=== PATIENT | female | born 1955 | race African-American/Black ===

== ENCOUNTER 2020-09-23 19:10 | Emergency (ER) | payer OTHER, SELFPAY ==
--- OUTSIDE RECORDS SUMMARY | 2020-09-23 19:13 | XMS REPORT | Continuity of Care Document ---
:1955 Author Organization [facility] t Address 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) Active Problem 09/16/2020 [facility] Headache Problem Active 2020-09-16 Mem oria (finding) 00:34:27 l Headache Randy n (finding) Active Problem 09/16/2020 [facility] Hypertensi Problem Active 2020-09-16 M emoria ve 00:34:27 l disorder, [place] systemic Hypertensi arterial ve (disorder) disorder, systemic arterial (disorder) Active Problem 09/16/2020 [facility] Allergies, Adverse Reactions, Alerts Allergy Allergy Status Severity Reaction(s) Onset Inactive Treating Comm ents Source Name Type Date Date Clinician Sinus Sinus Active Sofi Betts Social History Social Habit Start Date Stop Date Quantity Comments Source Social History 2020-09-13 2020-09-13 Kyle shepard 14:47:10 14:47:10 Medications This patient has no known medications. Vital Signs Vital Name Observation Time Observation Value Comments Source Systolic (mm Hg) 2020-09-13 14:44:00 Aime Betts Diastolic (mm Hg) 2020-09-13 14:44:00 Mem jason Betts Heart Rate 2020-09-13 14:44:00 Kyle Betts Respitory Rate 2020-09-13 14:44:00 Dane Yancey Height 2020-09-13 14:44:00 160.02 cm Kyle Betts Weight 2020-09-13 14:44:00 Kyle Betts BMI Calculated 2020-09-13 14:44:00 Dane Yancey Procedures This patient has no known procedures. Encounters Start End Encounter Admission Attending Care Care Encounter Source Date/Time Date/Time Type Type Clinicians Facility Department ID 2020-09-13 2020-09-13 [id number] 09:30:00 23:59:59 Dharmesh 01 Tad 2018-10-11 2018-10-11 Emergency [facility] [id number] 05:34:42 06:40:00 Humaira Urbina [id number] [place] [id number] [place] [id number] Results This patient has no known results.
[2020-09-23] MEDS ORDERED: ACETAMINOPHEN 500 MG TAB ONE ×2 (21:39→23:53)
[2020-09-24] MEDS ORDERED: AZITHROMYCIN 250 MG TAB ONE (00:21)
[2020-09-24] MEDS ORDERED: dexAMETHasone 4 MG TAB ONE (00:22)
[2020-09-24] MEDS ORDERED: FAMOTIDINE 20 MG TAB ONE (00:22)
--- NOTE | 2020-09-24 13:14 | RAD REPORT ---
EXAM DESCRIPTION: CT - Head Brain Wo Cont - 09/24/2020 6:31 am CLINICAL HISTORY: The patient is 64 years old and is Female; HEADACHE TECHNIQUE: Axial computed tomography images of the head/brain without intravenous contrast. Sagitt al and coronal reformatted images were created and reviewed. This CT exam was performed using one o r more of the following dose reduction techniques: automated exposure control, adjustment of the mA and/or kV according to patient size, and/or use of iterative reconstruction technique. COMPARISON: No relevant prior studies available. FINDINGS: BRAIN: Unremarkable. The gallo-white matter differentiation is preserved . No hemorrhag e. No significant white matter disease. No edema. No extra-axial fluid collections. VENTRICLES: Unremarkable. No ventriculomegaly. BONES/JOINTS: No acute fracture. SOFT TISSUES: Unremarkable. SINUSES: Unremarkable as visualized. No acute sinusitis. MASTOID AIR CELLS: Unremarkable as visualized. No mastoid effusion. ORBITS: Unremarkable as visualized. IMPRESSION: No acute intracranial findings. Electronically signed by: Sally Mejia MD 09/23/2020 11:05 PM CDT Due to temporary technical issues with the PACS/Fluency reporting system, reports are being signed by the in house radiologists without review as a courtesy to insure prompt reporting. The interpreting radiologist is fully responsible for the content of the report.
--- NOTE | 2020-09-24 17:44 | ER ---
Nurse's Notes [facility] Name: Alycia Ibarra Age: 64 yrs Sex: Female : 1955 Arrival Date: 09/23/2020 Time: 19:15 Bed 13 Private MD: Diagnosis: Disease of upper respiratory tract, unspecified-urbina virus/ covid 19;Fever, unspecified Presentation: 09/23 21:03 Chief complaint: Patient states: Pt stated my head started hurting 09/09 headaches and kg ear aches. 09/[address] Sanderson neurology referred by eye dr for possible stroke. Pt scheduled for MRi/MRA 09/27. Pt headache has continually gotten worse and chills so she came to ER>. Coronavirus screen: Client denies travel out of the [place] in the last 14 days. At this time, unable to obtain information related to travel outside the [place] At this time, the client does not indicate any symptoms associated with coronavirus-19. Ebola Screen: Patient negative for fever greater than or equal to 101.5 degrees Fahrenheit, and additional compatible Ebola Virus Disease symptoms Patient denies exposure to infectious person. Patient denies travel to an Ebola-affected area in the 21 days before illness onset. Initial Sepsis Screen: Does the patient meet any 2 criteria? No. Patient's initial sepsis screen is negative. Does the patient have a suspected source of infection? No. Patient's initial sepsis screen is negative. Risk Assessment: Do you want to hurt yourself or someone else? Patient reports no desire to harm self or others. Onset of symptoms was September 09, 2020. 21:03 Method Of Arrival: Ambulatory kg 21:03 Acuity: CHADD 3 kg Triage Assessment: 21:08 Headache History: Denies prior headaches. General: Appears in no apparent distress. kg distressed, Behavior is calm, cooperative, appropriate for age, quiet. Pain: Complains of pain in face Pain radiates to Ear frieda Pain currently is 7 out of 10 on a pain scale. at worst was 9 out of 10 on a pain scale. level that patient reports is acceptable is 5 out of 10 on a pain scale. Quality of pain is described as dull, Pain began 09/09 Also complains of Chills. Neuro: Reports my right and right tingle on and off. Historical: - Allergies: 21:08 No Known Allergies; kg - Home Meds: 21:08 losartan 50 mg oral tab 1 tab [Active]; kg - PSHx: 21:08 hysterectomy; kg - Immunization history:: Adult Immunizations not up to date, Client reports having NOT received the Covid vaccine. - Social history:: Smoking status: Patient denies any tobacco usage or history of. Patient uses alcohol, occasionally. - Family history:: not pertinent. Screenin:12 Abuse screen: Denies threats or abuse. Denies injuries from another. Nutritional kg screening: No deficits noted. Tuberculosis screening: No symptoms or risk factors identified. Fall Risk None identified. Assessment: 23:39 General: Appears in no apparent distress. Behavior is calm, cooperative, appropriate ad5 for age. Pain: Complains of pain in headache, ear pain. Neuro: No deficits noted. Level of Consciousness is awake, alert, obeys commands, Oriented to person, place, time, situation, Appropriate for age Derrick Man are equal bilaterally Moves all extremities. Gait is steady, Speech is normal, Facial symmetry appears normal, Pupils are PERRLA, Intact. Neuro: Reports headache. Cardiovascular: Capillary refill < 3 seconds Patient's skin is warm and dry. Respiratory: Airway is patent Respiratory effort is even, unlabored, Respiratory pattern is regular, symmetrical. GI: No deficits noted. No signs and/or symptoms were reported involving the gastrointestinal system. : No deficits noted. No signs and/or symptoms were reported regarding the genitourinary system. Derm: Skin is dry, Skin is normal, Skin temperature is warm. Vital Signs: 21:03 BP 168 / 108; Pulse 89; Resp 20; Temp 101.7(O); Pulse Ox 99% on R/A; Weight 84.37 kg kg (M); Height 5 ft. 1 in. (154.94 cm); Pain 7/10; 23:41 BP 148 / 100; Pulse 86; Resp 18 S; Pulse Ox 98% on R/A; ad5 09/24 00:37 BP 126 / 78; Pulse 81; Resp 16; Temp 99.3(O); Pulse Ox 100% on R/A; ak2 09/23 21:03 Body Mass Index 35.14 (84.37 kg, 154.94 cm) kg Yumi Coma Score: 09/23 23:48 Eye Response: spontaneous(4). Verbal Response: oriented(5). Motor Response: obeys [facility] commands(6). Total: 15. ED Course: 19:15 Patient arrived in ED. es 21:08 Triage completed. kg 21:12 Patient has correct armband on for positive identification. kg 22:31 CT Head Brain wo Cont In Process Unspecified. EDKS 23:17 Destin Avila MD is Attending Physician. [facility] 23:49 Antwan Weber MD is Referral Physician. [facility] 09/24 00:37 No provider procedures requiring assistance completed. Patient did not have IV access ak2 during this emergency room visit. Administered Medications: 09/23 23:39 Drug: Tylenol 1000 mg Route: PO; ad5 09/24 00:11 Follow up: Response: No adverse reaction ad5 00:08 Drug: Decadron (dexamethasone) 6 mg Route: PO; ak2 00:08 Drug: Pepcid (famotidine) 40 mg Route: PO; ak2 00:09 Drug: Zithromax (azithromycin) 500 mg Route: PO; ak2 Outcome: 09/23 23:50 Discharge ordered [address] . [facility] 09/24 00:37 Discharged to home ambulatory. ak2 Condition: good Discharge instructions given to patient. 00:38 Patient left the ED. ak2 Signatures: Dispatcher [employer] EDKS Destin Avila MD MD cha Salyer, Krystal Puckett, RN RN kg Wu [place] ak2 Corrections: (The following items were deleted from the chart) 09/23 21:10 21:08 PMHx: Hypertensive disorder; kg kg 09/24 00:38 00:37 BP 126 / 78; Pulse 81bpm; Resp 16bpm; Pulse Ox 100% RA; ak2 ak2
--- NOTE | 2020-09-24 17:44 | EDPHYS ---
Physician Documentation [facility] Name: Alycia Ibarra Age: 64 yrs Sex: Female : 1955 Arrival Date: 09/23/2020 Time: 19:15 Bed 13 Private MD: ED Physician Destin Avila HPI: 09/23 23:42 This 64 yrs old Black Female presents to ER via Ambulatory with complaints of Headache, charley x 9 days, hand and fet tngling. 23:42 The patient complains of pain to the top of head, forehead, left frontal area, left charley side of the back of head, left occipital area, left base of the skull, right frontal area, right side of the back of head, right occipital area and right base of the skull. The patient describes the headache as constant. Onset: The symptoms/episode began/occurred 2 day(s) ago. 23:43 The patient or guardian reports cough. Onset: The symptoms/episode began/occurred 2 charley day(s) ago. Modifying factors: The symptoms are alleviated by nothing. the symptoms are aggravated by nothing. Associated signs and symptoms: The patient has no apparent associated signs or symptoms. Severity of symptoms: At its worst the pain was mild, in the emergency department the pain is unchanged. Headache History: Denies prior headaches. Associated signs and symptoms: Pertinent positives: fever, sore throat. Severity of symptoms: At their worst the symptoms were mild in the emergency department the symptoms are unchanged. Historical: - Allergies: 21:08 No Known Allergies; kg - Home Meds: 21:08 losartan 50 mg oral tab 1 tab [Active]; kg - PSHx: 21:08 hysterectomy; kg - Immunization history:: Adult Immunizations not up to date, Client reports having NOT received the Covid vaccine. - Social history:: Smoking status: Patient denies any tobacco usage or history of. Patient uses alcohol, occasionally. - Family history:: not pertinent. ROS: 23:43 Eyes: Negative for injury, pain, redness, and discharge, Neck: Negative for injury, charley pain, and swelling, Cardiovascular: Negative for chest pain, palpitations, and edema, Abdomen/GI: Negative for abdominal pain, nausea, vomiting, diarrhea, and constipation, Back: Negative for injury and pain, : Negative for injury, bleeding, discharge, and swelling, MS/Extremity: Negative for injury and deformity, Skin: Negative for injury, rash, and discoloration, Psych: Negative for depression, anxiety, suicide ideation, homicidal ideation, and hallucinations, Allergy/Immunology: Negative for hives, rash, and allergies, Endocrine: Negative for neck swelling, polydipsia, polyuria, polyphagia, and marked weight changes, Hematologic/Lymphatic: Negative for swollen nodes, abnormal bleeding, and unusual bruising. 23:43 Constitutional: Positive for fever, malaise. 23:43 Respiratory: Positive for cough. 23:43 Neuro: Positive for headache. Exam: 23:43 Head/Face: Normocephalic, atraumatic. Eyes: Pupils equal round and reactive to light, charley extra-ocular motions intact. Lids and lashes normal. Conjunctiva and sclera are non-icteric and not injected. Cornea within normal limits. Periorbital areas with no swelling, redness, or edema. ENT: Nares patent. No nasal discharge, no septal abnormalities noted. Tympanic membranes are normal and external auditory canals are clear. Oropharynx with no redness, swelling, or masses, exudates, or evidence of obstruction, uvula midline. Mucous membranes moist. Neck: Trachea midline, no thyromegaly or masses palpated, and no cervical lymphadenopathy. Supple, full range of motion without nuchal rigidity, or vertebral point tenderness. No Meningismus. Chest/axilla: Normal chest wall appearance and motion. Nontender with no deformity. No lesions are appreciated. Cardiovascular: Regular rate and rhythm with a normal S1 and S2. No gallops, murmurs, or rubs. Normal PMI, no JVD. No pulse deficits. Respiratory: Lungs have equal breath sounds bilaterally, clear to auscultation and percussion. No rales, rhonchi or wheezes noted. No increased work of breathing, no retractions or nasal flaring. Abdomen/GI: Soft, non-tender, with normal bowel sounds. No distension or tympany. No guarding or rebound. No evidence of tenderness throughout. Back: No spinal tenderness. No costovertebral tenderness. Full range of motion. Female : Normal external genitalia. Skin: Warm, dry with normal turgor. Normal color with no rashes, no lesions, and no evidence of cellulitis. MS/ Extremity: Pulses equal, no cyanosis. Neurovascular intact. Full, normal range of motion. Neuro: Awake and alert, GCS 15, oriented to person, place, time, and situation. Cranial nerves II-XII grossly intact. Motor strength 5/5 in all extremities. Sensory grossly intact. Cerebellar exam normal. Normal gait. Psych: Awake, alert, with orientation to person, place and time. Behavior, mood, and affect are within normal limits. 23:43 Constitutional: The patient appears febrile. Vital Signs: 21:03 BP 168 / 108; Pulse 89; Resp 20; Temp 101.7(O); Pulse Ox 99% on R/A; Weight 84.37 kg kg (M); Height 5 ft. 1 in. (154.94 cm); Pain 7/10; 23:41 BP 148 / 100; Pulse 86; Resp 18 S; Pulse Ox 98% on R/A; ad5 09/24 00:37 BP 126 / 78; Pulse 81; Resp 16; Temp 99.3(O); Pulse Ox 100% on R/A; ak2 09/23 21:03 Body Mass Index 35.14 (84.37 kg, 154.94 cm) kg Yumi Coma Score: 09/23 23:48 Eye Response: spontaneous(4). Verbal Response: oriented(5). Motor Response: obeys [facility] commands(6). Total: 15. MDM: 23:17 Patient medically screened. [facility] 23:48 Antibiotic administration: The patient is discharged and will get outpatient [facility] antibiotics, Zithromax. Differential diagnosis: bronchitis, flu, URI, migraine, sinusitis. Data reviewed: vital signs, nurses notes, lab test result(s), Flu: negative. Data interpreted: lunchroom monitor: rate is 86 beats/min, rhythm is regular, Pulse oximetry: on room air is 98 %. Counseling: I had a detailed discussion with the patient and/or guardian regarding: the historical points, exam findings, and any diagnostic results supporting the discharge/admit diagnosis, lab results, the need for outpatient follow up, for definitive care, a family practitioner, a second chef. 09/23 21:13 Order name: COVID-19 : Document "Date of Symptom Onset" if Symptomatic. kg 09/23 21:13 Order name: Flu kg 09/23 21:14 Order name: Influenza Screen (A ; Complete Time: 23:46 EDMS 09/23 22:13 Order name: CT Head Brain wo Cont kg 09/23 23:29 Order name: SARS-COV-2 RT PCR; Complete Time: 23:46 EDMS Administered Medications: 23:39 Drug: Tylenol 1000 mg Route: PO; ad5 09/24 00:11 Follow up: Response: No adverse reaction ad5 00:08 Drug: Decadron (dexamethasone) 6 mg Route: PO; ak2 00:08 Drug: Pepcid (famotidine) 40 mg Route: PO; ak2 00:09 Drug: Zithromax (azithromycin) 500 mg Route: PO; ak2 Disposition Summary: 09/23/20 23:50 Discharge Ordered Location: Home [facility] Problem: new [facility] Symptoms: have improved charley Condition: Stable charley Diagnosis - Disease of upper respiratory tract, unspecified - [place] virus/ covid 19 charley - Fever, unspecified charley Followup: charley - With: Private Physician - When: 2 - 3 days - Reason: Recheck today's complaints, Continuance of care, Re-evaluation by your physician Followup: charley - With: Antwan Weber MD - When: 2 - 3 days - Reason: Recheck today's complaints, Re-evaluation by your physician Discharge Instructions: - Discharge Summary Sheet [facility] - Fever, Adult charley - Upper Respiratory Infection, Adult charley - Viral Respiratory Infection charley - Viral Respiratory Infection, [id number] charley - Aspirin and Your Heart charley - Fever, Adult, [id number] [facility] - COVID-19 charley - COVID-19: What Your Test Results Mean - [facility] - COVID-19 Frequently Asked Questions [facility] - COVID-19: Quarantine vs. Isolation - [facility] charley Forms: - Medication Reconciliation Form charley - Thank You Letter [facility] - Antibiotic Education [facility] - Prescription Opioid Use [facility] Prescriptions: - albuterol sulfate 90 mcg/actuation Inhalation HFA aerosol inhaler - inhale 2 puff by INHALATION route every 4-6 hours; 1 puff; Refills: 0, Product charley Selection Permitted - dexamethasone 2 mg Oral tablet - take 1 tablet by ORAL route 3 times per day; 15 tablet; Refills: 0, Product [facility] Selection Permitted - ivermectin 3 mg Oral tablet - take 4 tablet by ORAL route once daily; 20 tablet; Refills: 0, Product [facility] Selection Permitted - Pepcid 20 mg Oral Tablet - take 1 tablet by ORAL route every 12 hours for 10 days; 20 tablet; Refills: 0, charley Product Selection Permitted - Zithromax 500 mg Oral Tablet - take 1 tablet by ORAL route once daily for 4 days; 4 tablet; Refills: 0, charley Product Selection Permitted Signatures: Dispatcher [employer] Destin Umana MD MD cha Graham, Kristen, RN RN kg Millan, [place] Corrections: (The following items were deleted from the chart) 09/23 21:10 21:08 PMHx: Hypertensive disorder; kg kg 22:05 21:14 CORONAVIRUS ordered. EDDC EDDC
[2020-09-25 16:15] VITALS: BP 126/78; TEMP 99.3; O2SAT 100
== END 2020-09-24 00:38 | disposition home or self-care (01) ==
LOC: ER 19:10
DX: U07.1 COVID-19 (principal); R51.9 Headache, unspecified
CPT/HCPCS: 87804 ×2; 70450; U0003

== ENCOUNTER 2020-09-30 19:03 | Inpatient (IN) | payer OTHER, SELFPAY ==
--- OUTSIDE RECORDS SUMMARY | 2020-09-30 19:06 | XMS REPORT | Continuity of Care Document ---
:1955 Author Organization [facility] t Address [address] [place] [address] Care Team Providers Name Role Phone Tad [...] 2020-09-16 M emoria ve 00:34:27 l disorder, [place] systemic Hypertensi arterial ve (disorder) disorder, systemic [...] Department ID 2020-09-13 2020-09-13 [id number] 09:30:00 23:59:59 Dharmesh 01 Tad 2018-10-11 2018-10-11 Emergency [facility] [id number] 05:34:42 06:40:00 Humaira Urbina [id number] [place] [id number] [place] [id number] Results This patient has no known results.
[2020-09-30] MEDS ORDERED: ASPIRIN 81 MG CHEWABLE TABLET ONE (23:09)
[2020-09-30] MEDS ORDERED: ALBUTEROL INHALER 60 PUFF/8 GM IH ONE (23:09)
[2020-09-30] MEDS ORDERED: ACETAMINOPHEN 325 MG TABLET ONE (23:09)
[2020-09-30] MEDS ORDERED: FAMOTIDINE 20 MG/2 ML VIAL IV ONE (23:09)
[2020-09-30] MEDS ORDERED: dexAMETHasone 10 MG/ML VIAL ONE (23:09)
--- NOTE | 2020-09-30 23:25 | ER ---
Nurse's Notes [facility] Name: Alycia Ibarra Age: 64 yrs Sex: Female : 1955 Arrival Date: 09/30/2020 Time: 19:04 Bed 6 Private MD: Diagnosis: Pneumonia due to SARS-associated coronavirus-Covid 19 ;Hypoxemia;Cardiomegaly Presentation: 09/30 20:29 Chief complaint: Patient states: Pt was seen in ED on 09/23/20 and was tested for vg1 Covid, results Positive. Stated medications were working, but today felt shortness of breath/difficulty breathing. Denies NVD. Stated has a slight headache. Coronavirus screen: Client denies travel out of the [place] in the last 14 days. Client reports previous positive COVID test result. Date of collection: September 23, 2020. Ebola Screen: Patient negative for fever greater than or equal to 101.5 degrees Fahrenheit, and additional compatible Ebola Virus Disease symptoms. Initial Sepsis Screen: Does the patient meet any 2 criteria? No. Patient's initial sepsis screen is negative. Does the patient have a suspected source of infection? No. Patient's initial sepsis screen is negative. Risk Assessment: Do you want to hurt yourself or someone else?. Onset of symptoms was September 30, 2020. 20:29 Method Of Arrival: Ambulatory vg1 20:29 Acuity: CHADD 3 vg1 Triage Assessment: 20:34 General: Appears in no apparent distress. comfortable, Behavior is calm, cooperative. vg1 Pain: Complains of pain in head Pain currently is 7 out of 10 on a pain scale. Pain began today. Respiratory: Reports shortness of breath on exertion cough that is productive, Airway is patent Respiratory effort is even, unlabored, Respiratory pattern is tachypnea Onset: The symptoms/episode began/occurred this morning, the patient has moderate shortness of breath. 20:39 Respiratory: Breath sounds are diminished in left posterior lower lobe and right vg1 posterior lower lobe. Historical: - Allergies: 20:34 No Known Allergies; vg1 - Home Meds: 20:34 losartan 50 mg Oral tab 1 tab [Active]; vg1 - PMHx: 20:34 Hypertensive disorder; vg1 - PSHx: 20:34 hysterectomy; vg1 - Immunization history:: Adult Immunizations up to date, . - Social history:: Smoking status: Patient denies any tobacco usage or history of. Screenin:47 Abuse screen: Denies threats or abuse. Nutritional screening: No deficits noted. ea Tuberculosis screening: No symptoms or risk factors identified. Fall Risk IV access (20 points). Assessment: 23:00 General: Appears uncomfortable, Behavior is appropriate for age. Pain: Denies pain. ea Neuro: Level of Consciousness is awake, alert, obeys commands, Oriented to person, place, time. Cardiovascular: Patient's skin is warm and dry. Respiratory: Airway is patent Respiratory effort is labored, Respiratory pattern is tachypnea. Derm: Skin is dry, Skin is normal, Skin temperature is warm. 10/01 19:59 Reassessment: Patient and/or family updated on plan of care and expected duration. Pain ea level reassessed. Patient is alert, oriented x 3, equal unlabored respirations, skin warm/dry/pink. Pt admitted to fourth floor, report called to receiving nurse on fourth. Pt left ED via wheelchair per mortuary technician, tolerating well. Vital Signs: 09/30 20:29 BP 107 / 77; Pulse 95; Resp 22; Temp 99.4(O); Pulse Ox 90% on R/A; Weight 83.46 kg; vg1 Height 5 ft. 1 in. (154.94 cm); Pain 7/10; 20:39 Pulse Ox 93% on 3 lpm NC; vg1 23:48 BP 126 / 67; Pulse 82; Resp 23; Pulse Ox 87% on R/A; ea 10/01 20:00 BP 102 / 57; Pulse 70; Resp 20; Pulse Ox 95% on 3 lpm NC; ea 09/30 20:29 Body Mass Index 34.77 (83.46 kg, 154.94 cm) vg1 09/30 23:48 pt placed on O2 at 3L per nasal cannula ea ED Course: 19:04 Patient arrived in ED. am2 20:34 Triage completed. vg1 20:34 Arm band placed on Patient placed in waiting room, Patient notified of wait time. vg1 22:12 Destin Avila MD is Attending Physician. charley 22:43 Nia Addison RN is Primary Nurse. ea 23:23 Gerald Fernando MD is Hospitalizing Provider. charley 23:26 XRAY Chest (1 view) In Process Unspecified. EDIL 23:47 Patient has correct armband on for positive identification. Bed in low position. Call ea light in reach. Side rails up X2. potato chip maker on. Pulse ox on. NIBP on. 23:47 No provider procedures requiring assistance completed. Patient admitted, IV remains in ea place. 10/01 00:15 Inserted saline lock: 18 gauge in left antecubital area, using aseptic technique. [email or web address] Administered Medications: 09/30 23:11 Drug: Tylenol 650 mg Route: PO; ea 23:11 Drug: Decadron - Dexamethasone 10 mg Route: IVP; Site: right antecubital; ea 23:11 Drug: Albuterol HFA Inhaler 4 puffs Route: Inhalation; ea 23:11 Drug: Pepcid (famotidine) 20 mg Route: IVP; Site: right antecubital; ea 23:11 Drug: Aspirin 162 mg Route: PO; ea 23:47 Drug: Rocephin (cefTRIAXone) 1 grams Route: IV; Rate: per protocol; Site: right ea antecubital; 10/01 00:29 Drug: Zithromax (azithromycin) 500 mg Route: IVPB; Infused Over: 1 hrs; Site: left ea antecubital; Outcome: 09/30 23:24 Decision to Hospitalize by Provider. [facility] 23:47 Admitted to ER Hold. Please see [facility] for further documentation. 23:47 Condition: stable 23:47 Instructed on the need for admit, Demonstrated understanding of instructions. 10/01 20:01 Patient left the ED. ea Signatures: Dispatcher [employer] EDIL Destin Avila MD MD cha Bryson, James, RN RN jb4 Vanessa Omalley Elena, RN RN Gi Newton RN RN vg1 Esteban Madden, RN RN da3
--- NOTE | 2020-09-30 23:25 | EDPHYS ---
Physician Documentation [facility] Name: Alycia Ibarra Age: 64 yrs Sex: Female : 1955 Arrival Date: 09/30/2020 Time: 19:04 Bed 6 Private MD: ED Physician Destin Avila HPI: 09/30 22:37 This 64 yrs old Black Female presents to ER via Ambulatory with complaints of Breathing charley Difficulty, Covid+. 22:37 The patient has shortness of breath at rest, with light activity. Onset: The charley symptoms/episode began/occurred 3 day(s) ago. Historical: - Allergies: 20:34 No Known Allergies; vg1 - Home Meds: 20:34 losartan 50 mg Oral tab 1 tab [Active]; vg1 - PMHx: 20:34 Hypertensive disorder; vg1 - PSHx: 20:34 hysterectomy; vg1 - Immunization history:: Adult Immunizations up to date, . - Social history:: Smoking status: Patient denies any tobacco usage or history of. ROS: 22:39 Constitutional: Negative for fever, chills, and weight loss, Eyes: Negative for injury, charley pain, redness, and discharge, ENT: Negative for injury, pain, and discharge, Neck: Negative for injury, pain, and swelling, Cardiovascular: Negative for chest pain, palpitations, and edema, Abdomen/GI: Negative for abdominal pain, nausea, vomiting, diarrhea, and constipation, Back: Negative for injury and pain, : Negative for injury, bleeding, discharge, and swelling, MS/Extremity: Negative for injury and deformity, Skin: Negative for injury, rash, and discoloration, Neuro: Negative for headache, weakness, numbness, tingling, and seizure, Psych: Negative for depression, anxiety, suicide ideation, homicidal ideation, and hallucinations, Allergy/Immunology: Negative for hives, rash, and allergies, Endocrine: Negative for neck swelling, polydipsia, polyuria, polyphagia, and marked weight changes, Hematologic/Lymphatic: Negative for swollen nodes, abnormal bleeding, and unusual bruising. 22:39 Cardiovascular: Positive for chest pain, of the chest. 22:39 Respiratory: Positive for cough, with no reported sputum, shortness of breath. Exam: 22:39 Constitutional: This is a well developed, well nourished patient who is awake, alert, charley and in no acute distress. Head/Face: Normocephalic, atraumatic. Eyes: Pupils equal round and reactive to light, extra-ocular motions intact. Lids and lashes normal. Conjunctiva and sclera are non-icteric and not injected. Cornea within normal limits. Periorbital areas with no swelling, redness, or edema. ENT: Nares patent. No nasal discharge, no septal abnormalities noted. Tympanic membranes are normal and external auditory canals are clear. Oropharynx with no redness, swelling, or masses, exudates, or evidence of obstruction, uvula midline. Mucous membranes moist. Neck: Trachea midline, no thyromegaly or masses palpated, and no cervical lymphadenopathy. Supple, full range of motion without nuchal rigidity, or vertebral point tenderness. No Meningismus. Chest/axilla: Normal chest wall appearance and motion. Nontender with no deformity. No lesions are appreciated. Cardiovascular: Regular rate and rhythm with a normal S1 and S2. No gallops, murmurs, or rubs. Normal PMI, no JVD. No pulse deficits. Abdomen/GI: Soft, non-tender, with normal bowel sounds. No distension or tympany. No guarding or rebound. No evidence of tenderness throughout. Back: No spinal tenderness. No costovertebral tenderness. Full range of motion. Female : Normal external genitalia. Skin: Warm, dry with normal turgor. Normal color with no rashes, no lesions, and no evidence of cellulitis. MS/ Extremity: Pulses equal, no cyanosis. Neurovascular intact. Full, normal range of motion. Neuro: Awake and alert, GCS 15, oriented to person, place, time, and situation. Cranial nerves II-XII grossly intact. Motor strength 5/5 in all extremities. Sensory grossly intact. Cerebellar exam normal. Normal gait. Psych: Awake, alert, with orientation to person, place and time. Behavior, mood, and affect are within normal limits. 22:39 Respiratory: the patient does not display signs of respiratory distress, Respirations: no acute changes, Breath sounds: bronchial sounds, that are mild, are scattered, rhonchi, that are mild, are scattered, Respiratory rate: 22 23:48 ECG was reviewed by the Attending Physician. [facility] Vital Signs: 20:29 BP 107 / 77; Pulse 95; Resp 22; Temp 99.4(O); Pulse Ox 90% on R/A; Weight 83.46 kg; vg1 Height 5 ft. 1 in. (154.94 cm); Pain 7/10; 20:39 Pulse Ox 93% on 3 lpm NC; vg1 23:48 BP 126 / 67; Pulse 82; Resp 23; Pulse Ox 87% on R/A; ea 10/01 20:00 BP 102 / 57; Pulse 70; Resp 20; Pulse Ox 95% on 3 lpm NC; ea 09/30 20:29 Body Mass Index 34.77 (83.46 kg, 154.94 cm) vg1 09/30 23:48 pt placed on O2 at 3L per nasal cannula ea MDM: 22:12 Patient medically screened. charley 22:41 Differential diagnosis: Anemia Anxiety Reaction asthma, Bronchitis CHF exacerbation, charley Chronic Obstructive Pulmonary Disease pneumonia, pulmonary edema, Pulmonary Embolism reactive airway disease. Antibiotic administration: Rocephin and Zithromax given. The patient's Wells Deep Vein Thrombosis Score was calculated as follows: Total Score: 0-2 Pts- Low Risk. The patient's pulmonary embolism risk score was calculated as follows: Total Score: 0-2 points. This patient was found to be at low risk for a pulmonary embolism by using the Well's assessment criteria. Immunization status: Influenza vaccine: Data reviewed: vital signs, nurses notes, lab test result(s), EKG, radiologic studies, CT scan, plain films. Data interpreted: environmental monitoring technician: rate is 95 beats/min, rhythm is regular, Pulse oximetry: on room air. Test interpretation: by ED physician or midlevel provider: ECG, plain radiologic studies. Counseling: I had a detailed discussion with the patient and/or guardian regarding: the historical points, exam findings, and any diagnostic results supporting the discharge/admit diagnosis, lab results, radiology results. 09/30 22:31 Order name: Basic Metabolic Panel la09/30 22:31 Order name: CBC with Diff 09/30 22:31 Order name: LFT's 09/30 22:31 Order name: Magnesium la09/30 22:31 Order name: NT PRO-BNP la09/30 22:31 Order name: PT-INR la09/30 22:31 Order name: Troponin (emerg Dept Use Only) la09/30 22:31 Order name: Blood Culture Adult (2) la1 09/30 22:31 Order name: CRP la1 09/30 22:31 Order name: Ferritin la1 09/30 22:32 Order name: Basic Metabolic Panel EDMS 09/30 22:32 Order name: CBC with Automated Diff EDMS 09/30 22:32 Order name: Liver (Hepatic) Function EDMS 09/30 22:32 Order name: Magnesium EDMS 09/30 22:31 Order name: XRAY Chest (1 view) la1 09/30 22:32 Order name: NT PRO-BNP EDMS 09/30 22:32 Order name: Protime (+INR) EDMS 09/30 22:39 Order name: CT Chest For PE Angio charley 09/30 23:16 Order name: Lactate tt3 10/01 04:31 Order name: Lactate Sepsis 2 HR Follow-up EDMS 10/01 06:07 Order name: CBC with Automated Diff EDMS 10/01 06:12 Order name: D-Dimer EDMS 10/01 06:23 Order name: Comprehensive Metabolic Panel EDMS 10/01 06:23 Order name: C-Reactive Protein EDMS 10/01 06:23 Order name: T4 Free EDMS 10/01 06:23 Order name: Magnesium EDMS 10/01 06:23 Order name: Thyroid Stimulating Hormone EDMS 10/01 06:23 Order name: Ferritin EDMS 10/01 07:56 Order name: CBC Smear Scan EDMS 10/01 11:19 Order name: CT EDMS 09/30 22:31 Order name: EKG; Complete Time: 22:32 la1 09/30 22:31 Order name: Cardiac monitoring; Complete Time: 23:11 la1 09/30 22:31 Order name: EKG - Nurse/Tech la1 09/30 22:31 Order name: IV Saline Lock; Complete Time: 23:11 la1 09/30 22:31 Order name: Labs collected and sent; Complete Time: 23:11 la1 09/30 22:31 Order name: O2 Per Protocol; Complete Time: 23:11 la1 09/30 22:31 Order name: O2 Sat Monitoring; Complete Time: 23:11 la EC:48 Rate is 83 beats/min. Rhythm is regular. QRS [place] is Normal. RI interval is normal. QRS charley interval is normal. QT interval is normal. No Q waves. T waves are Normal. No ST changes noted. Clinical impression: NSR w/ Non-specific ST/T Changes, LVH, and No evidence of ischemia. Interpreted by me. Reviewed by me. Administered Medications: 23:11 Drug: Tylenol 650 mg Route: PO; ea 23:11 Drug: Decadron - Dexamethasone 10 mg Route: IVP; Site: right antecubital; ea 23:11 Drug: Albuterol HFA Inhaler 4 puffs Route: Inhalation; ea 23:11 Drug: Pepcid (famotidine) 20 mg Route: IVP; Site: right antecubital; ea 23:11 Drug: Aspirin 162 mg Route: PO; ea 23:47 Drug: Rocephin (cefTRIAXone) 1 grams Route: IV; Rate: per protocol; Site: right ea antecubital; 10/01 00:29 Drug: Zithromax (azithromycin) 500 mg Route: IVPB; Infused Over: 1 hrs; Site: left ea antecubital; Disposition Summary: 09/30/20 23:24 Hospitalization Ordered Hospitalization Status: Inpatient Admission charley Provider: Gerald Fernando cha Condition: Fair charley Problem: new charley Symptoms: have improved charley Bed/Room Type: Standard charley Location: Telemetry/MedSurg (Inpatient)(10/01/20 18:26) bd Room Assignment: 418(10/01/20 18:26) bd Diagnosis - Pneumonia due to SARS-associated coronavirus - Covid 19 charley - Hypoxemia charley - Cardiomegaly charley Forms: - Medication Reconciliation Form charley - SBAR form charley Signatures: Dispatcher [employer] EDChristine Valenzuela Martha RN Destin Napier MD MD cha Attema, Lee, LEASE OUT MAN-C LEASE OUT MAN-Cla1 Nia Addison RN RN ea Garcia, Victoria RN RN vg1 Esteban Madden, RN RN da3 Corrections: (The following items were deleted from the chart) 09/30 23:25 23:24 Telemetry/MedSurg (Inpatient) [facility] 23:25 23:24 charley 10/01 18:26 09/30 23:25 [facility] ER HOLD [facility] 10/01 18:26 09/30 23:25 ERHOLD- [facility]
[2020-09-30 23:44] LABS: ALT/SGPT 23 U/L (12-78); AST/SGOT 21 U/L (15-37); Albumin 3.4 g/dL (3.4-5.0); Alkaline Phosphatase 70 U/L (45-117); BUN Blood Urea Nitrogen 22 mg/dL (7-18); Bicarbonate 29 mmol/L (21-32); Bilirubin Direct 0.1 mg/dL (0-0.2); Bilirubin Total 0.3 mg/dL (0.2-1.0); Ferritin 289.5 ng/mL (8-388); Glucose Level 98 mg/dL (74-106); Magnesium 2.9 mg/dL (1.8-2.4); NT PRO-BNP 41 pg/mL (<125); Potassium 3.7 mmol/L (3.5-5.1); Protein, Total 7.6 g/dL (6.4-8.2); Sodium Level 142 mmol/L (136-145); Troponin (Emerg Dept Use Only) < 0.02 ng/mL (0.0-0.045)
--- NOTE | 2020-09-30 23:51 | P.HP ---
Certification for Inpatient Patient admitted to: Inpatient With expected LOS: >2 Midnights Patient will require the following post-hospital care: None Practitioner: I am a practitioner with admitting privileges, knowledge of patient current condition, hospital course, and medical plan of care. Services: Services provided to patient in accordance with Admission requirements found in Title 42 Section 412.3 of the Code of Federal Regulations Patient History Date of Service: 09/30/20 Reason for admission: COVID-19 pneumonia History of Present Illness: 64-year-old -[place] female with history of hypertension presents emergency department for shortness of breath. Patient tested positive for Covid on 09/23/2020 with worsening shortness of breath since then. Upon arrival to the emergency department patient was saturating the high 80s on room air, patient was placed on nasal cannula which he is tolerating well at this time labs significant for C-reactive protein 43.4 magnesium 2.9 lactic acid 2.1 chest x- ray with bilateral Covid pneumonia, CT PE protocol pending. - Past Medical/Surgical History -: Hypertension -: Hysterectomy Psychosocial/ Personal History: Lives at home, cares for her grandchild - Family History Father -: Cancer - Social History Smoking Status: Never smoker Alcohol use: No CD- Drugs: No Caffeine use: Yes Place of Residence: Home Review of Systems 10-point ROS is otherwise unremarkable Respiratory: Cough, Dry, Shortness of Breath, SOB with Excertion Physical Examination - Physical Exam General: Alert, In no apparent distress, Oriented x3 HEENT: Atraumatic, PERRLA, Mucous membr. moist/pink, EOMI, Sclerae nonicteric Neck: Supple, 2+ carotid pulse no bruit, No LAD, Without JVD or thyroid abnormality Respiratory: Diminished, Other (Tachypnea) Cardiovascular: Regular rate/rhythm, Normal S1 S2 Gastrointestinal: Normal bowel sounds, No tenderness Musculoskeletal: No tenderness Integumentary: No rashes Neurological: Normal gait, Normal speech, Normal strength at 5/5 x4 extr, Normal tone, Normal affect Lymphatics: No axilla or inguinal lymphadenopathy - Studies Laboratory Data (last 24 hrs) 09/30/20 22:55: Sodium 142, Potassium 3.7, BUN 22 H, Creatinine 0.93, Glucose 98, Magnesium 2.9 H, Total Bilirubin 0.3, AST 21, ALT 23, Alkaline Phosphatase 70 Assessment and Plan - Plan Assessment: Acute hypoxic respiratory failure secondary to COVID-19 pneumonia Hypertension Plan: Acute hypoxic respiratory failure secondary to COVID-19 pneumonia: Continue with IV steroids, oral supplements, supplemental oxygen as needed, daily room air s aturations, room air saturations for home O2. Pulmonology consulted. If patient maintains stability over the course next 24 to 48 hours could possibly be discharged on home oxygen. Hypertension: Continue medications, adjust as necessary DVT PPX: Lovenox Code status: Full Discharge Plan: Home Plan to discharge in: 48 Hours - Advance Directives Does patient have a Living Will: No Does patient have a Durable POA for Healthcare: No - Code Status/Comfort Care Code Status Assessed: Yes (Full code) Critical Care: No Time Spent Managing Pts Care (In Minutes): 55
[2020-09-30] MEDS ORDERED: NA CHLORIDE 0.9% 100 ML ONE (23:58)
[2020-09-30] MEDS ORDERED: CEFTRIAXONE/SWI 1gm 1 GM/10 ML SYR ONE (23:58)
[2020-09-30] MEDS ORDERED: NA CHLORIDE 0.9% 250 ML ONE (23:58)
[2020-09-30] MEDS ORDERED: AZITHROMYCIN 500 MG INJ IVPB ONE (23:58)
[2020-10-01] MEDS ORDERED: ONDANSETRON 4 MG/2 ML VIAL IV PRN (01:34)
[2020-10-01] MEDS ORDERED: IVERMECTIN 3 MG TABLET PO SCH (01:34)
[2020-10-01] MEDS ORDERED: ACETAMINOPHEN 500 MG TAB PO PRN (01:34)
[2020-10-01 05:53] LABS: Absolute Lymphocytes (CBC) 0.4 K/uL (0.7-4.9); Basophils % 0.1 % (0-1.3); Hematocrit 36.4 % (36.0-45.0); Lymphocytes % 9.7 % (15.3-44.8); MPV 8.6 fL (7.6-11.3); RBC Red Blood Cell Count 4.49 M/uL (3.86-4.86)
[2020-10-01 06:23] LABS: Bilirubin Total 0.2 mg/dL (0.2-1.0); C-Reactive Protein 47.3 mg/L (<3.00); Ferritin 264.7 ng/mL (8-388); Potassium 3.7 mmol/L (3.5-5.1); Thyroid Stimulating Hormone 0.413 uIU/mL (0.360-3.740)
--- NOTE | 2020-10-01 07:22 | RAD REPORT ---
EXAM DESCRIPTION: RAD - Chest Single View - 09/30/2020 11:27 pm CLINICAL HISTORY: SOB COMPARISON: Chest For Pe Angio dated 10/01/2020 FINDINGS: Ill-defined patchy bilateral airspace opacities are present. Cardiomegaly.No acute osseous abnormality. No significant pleural effusions or pneumothorax. IMPRESSION: Ill-defined bilateral airspace disease concerning for multifocal pneumonia, including Co vid-19.
[2020-10-01 07:56] LABS: Blood Morphology Comment NOT SEEN (NOT SEEN); Platelet Estimate ADEQ; White Blood Cell Scan OK (OK)
[2020-10-01] MEDS ORDERED: ZINC SULFATE 220 MG CAP ONE (08:32)
[2020-10-01] MEDS ORDERED: THIAMINE HCL 100 MG TABLET ONE (08:32)
[2020-10-01] MEDS ORDERED: ASPIRIN EC 81 MG TAB PO ONE (08:32)
[2020-10-01] MEDS ORDERED: METHYLPREDNISOLONE 40 MG INJ ONE ×2 (08:33→12:41)
[2020-10-01] MEDS ORDERED: VITAMIN D 1000 UNIT TAB ONE (08:33)
[2020-10-01] MEDS ORDERED: ASCORBIC ACID 500 MG TABLET ONE ×2 (08:33→12:41)
[2020-10-01] MEDS ORDERED: ENOXAPARIN 40 MG/0.4 ML SQ ONE (08:33)
[2020-10-01] MEDS: ASPIRIN EC 81 MG TAB PO SCH (08:44)
[2020-10-01] MEDS: ASCORBIC ACID 500 MG TABLET PO SCH ×4 (08:45→21:00)
[2020-10-01] MEDS: METHYLPREDNISOLONE 40 MG INJ IV SCH ×3 (08:45→21:39)
[2020-10-01] MEDS: VITAMIN D 1000 UNIT TAB PO SCH (08:45)
[2020-10-01] MEDS: THIAMINE HCL 100 MG TABLET PO SCH (08:45)
[2020-10-01] MEDS: ZINC SULFATE 220 MG CAP PO SCH (08:45)
[2020-10-01] MEDS ORDERED: ENOXAPARIN 40 MG/0.4 ML SQ SCH (09:00)
[2020-10-01] MEDS: IVERMECTIN 3 MG TABLET PO SCH (09:00)
--- NOTE | 2020-10-01 11:17 | EKG ---
Test Date: 2020-09-30 Test Time: 23:44:47 [employer] Trailers: PHILL MEASUREMENT RESULTS: Intervals: Rate: 83 DC: 164 QRSD: 82 QT: 670 QTc: 787 [place]: P: 11 DC: 164 QRS: -13 T: 25 INTERPRETIVE STATEMENTS: Normal sinus rhythm Minimal voltage criteria for LVH, may be normal variant Prolonged QT Abnormal ECG Compared to ECG 12/25/2013 08:29:18 Left ventricular hypertrophy now present Prolonged QT interval now present T-wave abnormality no longer present Electronically Signed On 10-01-20 11:16:19 CDT by Joe Awad
--- NOTE | 2020-10-01 11:18 | RAD REPORT ---
EXAM DESCRIPTION: CT - Chest For Pe Angio - 10/01/2020 6:15 am COMPARISON: None. CLINICAL HISTORY: Pain;SOB TECHNIQUE: CT images through the chest with IV contrast using the pulmonary embolus protocol. Multip lanar reformats. Automated exposure control was utilized on this examination as a dose lowering techn ique. FINDINGS: Pulmonary arteries and vascular: Diagnostic quality bolus. No filling defects. Heart and mediastinum: Heart size is enlarged. No lymphadenopathy. Thyroid gland: Visualized portions are normal. Lungs: Multifocal bilateral consolidations an groundglass opacities are present. Airways: No filling defects. No bronchiectasis. Pleura: No pneumothorax. No significant pleural effusion. Subphrenic structures: Within normal limits. Musculoskeletal and soft tissues: Within normal limits for age. IMPRESSION: 1. No evidence of pulmonary embolus. 2. Multifocal pneumonia. Commonly reported imaging features of COVID-19 pneumonia are present. Other processes such as influenza pneumonia and organizing pneumonia, as can be seen with drug toxicity and connective tissue disease, can cause similar imaging pattern. 3. Cardiomegaly. Electronically signed by: Agustín Garcia MD 10/01/2020 12:42 AM CDT Due to temporary technical issues with the PACS/Fluency reporting system, reports are being signed by the in house radiologist without review as a courtesy to ensure prompt reporting. The interpreting r adiologist is fully responsible for the content of the report.
--- NOTE | 2020-10-01 13:26 | P.CNS ---
Date of Consult: 10/01/20 Reason for Consult: COVID penumonia Chief Complaint: COVID-19 pneumonia History of Present Illness: age 64 AW COVID penumonia and resp failure Allergies No Known Allergies Allergy (Unverified 10/01/20 01:34) Home Medications: Losartan Potassium 10/01/20 NK [No Home Meds] 10/01/20 - Past Medical/Surgical History -: Hypertension -: Hysterectomy Psychosocial/ Personal History: Lives at home, cares for her grandchild - Family History Father Medical History: Cancer - Social History Alcohol use: No CD- Drugs: No Caffeine use: Yes Place of Residence: Home Review of Systems General: Weakness, Malaise Respiratory: Shortness of Breath Physical Examination Temp Pulse Resp BP Pulse Ox 98.3 F 69 18 109/67 96 10/01/20 12:00 10/01/20 12:00 10/01/20 12:00 10/01/20 12:00 10/01/20 12:00 General: Alert, Oriented x3, Mild distress Laboratory Data (last 24 hrs) 09/30/20 22:55: PT Cancelled, INR Cancelled 09/30/20 22:55: WBC Cancelled, Hgb Cancelled, Hct Cancelled, Plt Count Cancelled 09/30/20 22:55: Sodium 142, Potassium 3.7, BUN 22 H, Creatinine 0.93, Glucose 98, Magnesium 2.9 H, Total Bilirubin 0.3, AST 21, ALT 23, Alkaline Phosphatase 70 - Problems (1) Pneumonia due to COVID-19 virus Current Visit: Yes Status: Acute Plan: Age 64 AW COVID penumonia/ Labs reviewed/ Anticoagulate/ CRP lowStable
--- NOTE | 2020-10-01 16:33 | P.PN ---
Subjective Date of Service: 10/01/20 Chief Complaint: COVID-19 pneumonia Subjective: No new changes (no significant change since admission overnight. feels maybe slightly better. denies chest pain, no nausea/vomiting, +cough) Review of Systems 10-point ROS is otherwise unremarkable Physical Examination - Vital Signs Temperature: 98.3 F Blood Pressure: 102/57 Pulse: 58 Respirations: 18 Pulse Ox (%): 89 - Studies Laboratory Data (last 24 hrs) 09/30/20 22:55: PT Cancelled, INR Cancelled 09/30/20 22:55: WBC Cancelled, Hgb Cancelled, Hct Cancelled, Plt Count Cancelled 09/30/20 22:55: Sodium 142, Potassium 3.7, BUN 22 H, Creatinine 0.93, Glucose 98, Magnesium 2.9 H, Total Bilirubin 0.3, AST 21, ALT 23, Alkaline Phosphatase 70 Assessment & Plan Physician Review Additional Text: Physical Exam General: Alert, NAD HEENT: normal conjunctiva, sclera anicteric Respiratory: nonlabored on 3L NC, slight tachypnea Cardiovascular: Regular rate/rhythm, Normal S1 S2 Gastrointestinal: soft, nontender, nondistended Musculoskeletal: No joint tenderness Integumentary: No rashes Assessment and Plan Acute hypoxic respiratory failure secondary to COVID-19 pneumonia Hypertension -continue treatment per covid protocol - steroids, oral supplements -wean o2 as needed -daily room air sats -pulm consulted -may benefit from baricitinib -lovenox anticipate dc home tomorrow with home o2 if improves Time Spent Managing Pts Care (In Minutes): 35
[2020-10-01] MEDS: RIVAROXABAN 20 MG TABLET PO SCH (17:00)
[2020-10-02 06:23] LABS: Absolute Lymphocytes (CBC) 0.5 K/uL (0.7-4.9); Basophils % 0.1 % (0-1.3); Hematocrit 36.2 % (36.0-45.0); Lymphocytes % 6.6 % (15.3-44.8); MPV 8.6 fL (7.6-11.3); RBC Red Blood Cell Count 4.43 M/uL (3.86-4.86)
[2020-10-02 06:37] LABS: ALT/SGPT 21 U/L (12-78); AST/SGOT 16 U/L (15-37); Albumin 2.9 g/dL (3.4-5.0); Alkaline Phosphatase 61 U/L (45-117); BUN Blood Urea Nitrogen 24 mg/dL (7-18); Bicarbonate 28 mmol/L (21-32); Bilirubin Total 0.2 mg/dL (0.2-1.0); Ferritin 268.1 ng/mL (8-388); Glucose Level 140 mg/dL (74-106); Magnesium 2.9 mg/dL (1.8-2.4); Potassium 3.6 mmol/L (3.5-5.1); Protein, Total 6.9 g/dL (6.4-8.2); Sodium Level 143 mmol/L (136-145)
[2020-10-02] MEDS ORDERED: POTASSIUM CL SA 10 MEQ TAB PO ONE (09:00)
[2020-10-02] MEDS: METHYLPREDNISOLONE 125 MG INJ IV SCH ×3 (10:05→21:05)
[2020-10-02] MEDS: VITAMIN D 1000 UNIT TAB PO SCH (10:05)
[2020-10-02] MEDS: ZINC SULFATE 220 MG CAP PO SCH (10:06)
[2020-10-02] MEDS: ASCORBIC ACID 500 MG TABLET PO SCH ×4 (10:06→21:05)
[2020-10-02] MEDS: THIAMINE HCL 100 MG TABLET PO SCH (10:07)
[2020-10-02] MEDS: ASPIRIN EC 81 MG TAB PO SCH (10:07)
--- NOTE | 2020-10-02 14:55 | P.PN ---
Subjective Date of Service: 10/02/20 Chief Complaint: COVID-19 pneumonia Subjective: Improving (feelin better, requiring more O2, feels ok when at rest, but hypoxic with ambulation. appetite improved, no nausea/vomiting) Review of Systems 10-point ROS is otherwise unremarkable Physical Examination - Vital Signs Temperature: 97.1 F Blood Pressure: 126/60 Pulse: 69 Respirations: 32 Pulse Ox (%): 95 Assessment & Plan Physician Review Additional Text: Physical Exam General: Alert, NAD HEENT: normal conjunctiva, sclera anicteric Respiratory: nonlabored on HFNC Cardiovascular: Regular rate/rhythm, Normal S1 S2 Gastrointestinal: soft, nontender, nondistended Musculoskeletal: No joint tenderness Assessment and Plan Acute hypoxic respiratory failure secondary to COVID-19 pneumonia Hypertension -continue treatment per covid protocol - steroids, oral supplements -wean o2 as needed -daily room air sats -pulm consulted -may benefit from baricitinib, however CRP not significantly elevated -lovenox -feels better today anticipate dc home in 2-3 days Time Spent Managing Pts Care (In Minutes): 35
[2020-10-02] MEDS: RIVAROXABAN 20 MG TABLET PO SCH (16:36)
[2020-10-02 20:53] LABS: Urine Appearance CLEAR (Clear); Urine Bilirubin NEGATIVE (Negative); Urine Blood NEGATIVE (Negative); Urine Color YELLOW (Yellow); Urine Glucose NEGATIVE (Negative); Urine Protein TRACE (Negative); Urine Specific Gravity >=1.030 (1.005-1.030); Urine Urobilinogen 0.2 mg/dL (0.2-1.0); Urine pH 5.5 (5.0-7.0)
[2020-10-02] MEDS: MELATONIN 5 MG TABLET PO PRN (21:05)
[2020-10-02] MEDS: BENZONATATE 100 MG CAP PO PRN (21:05)
[2020-10-02 21:17] LABS: Urine Microscopic Reflex ORDER UMIC
[2020-10-02 23:06] LABS: Urine Bacteria <20 /HPF (<20); Urine RBC NONE SEEN /HPF (NONE SEEN)
[2020-10-03 07:24] LABS: Absolute Lymphocytes (CBC) 0.4 K/uL (0.7-4.9); Basophils % 0.1 % (0-1.3); Hematocrit 35.9 % (36.0-45.0); Lymphocytes % 4.3 % (15.3-44.8); MPV 8.3 fL (7.6-11.3); RBC Red Blood Cell Count 4.39 M/uL (3.86-4.86)
[2020-10-03 08:02] LABS: Bilirubin Total 0.3 mg/dL (0.2-1.0); C-Reactive Protein 22.2 mg/L (<3.00); Ferritin 307.3 ng/mL (8-388); Magnesium 2.9 mg/dL (1.8-2.4); Potassium 3.7 mmol/L (3.5-5.1); Protein, Total 6.9 g/dL (6.4-8.2)
--- NOTE | 2020-10-03 08:38 | P.PN ---
Subjective Date of Service: 10/03/20 Chief Complaint: COVID-19 pneumonia Subjective: Improving (no change in O2 requirement, but she feels like she is "moving more air". hypoxic with exertion, appetite improved) Review of Systems 10-point ROS is otherwise unremarkable Physical Examination - Vital Signs Temperature: 97.1 F Blood Pressure: 117/58 Pulse: 65 Respirations: 26 Pulse Ox (%): 92 Assessment & Plan Physician Review Additional Text: Physical Exam General: Alert, NAD HEENT: normal conjunctiva, sclera anicteric Respiratory: nonlabored on 15L NC Cardiovascular: Regular rate/rhythm, Normal S1 S2 Gastrointestinal: soft, nontender, nondistended Skin: no rash Assessment and Plan Acute hypoxic respiratory failure secondary to COVID-19 pneumonia Hypertension -continue treatment per covid protocol - steroids, oral supplements -wean o2 as needed -pulm consulted -does not qualify for baricitinib, CRP not significantly elevated -lovenox -feels better today, still hypoxic / dyspneic with exertion in room -mild improvement on CXR anticipate dc home in ~3 days Time Spent Managing Pts Care (In Minutes): 35
[2020-10-03] MEDS: THIAMINE HCL 100 MG TABLET PO SCH (08:55)
[2020-10-03] MEDS: ASCORBIC ACID 500 MG TABLET PO SCH ×4 (08:55→19:44)
[2020-10-03] MEDS: METHYLPREDNISOLONE 125 MG INJ IV SCH ×3 (08:55→19:44)
[2020-10-03] MEDS: ASPIRIN EC 81 MG TAB PO SCH (08:55)
[2020-10-03] MEDS: VITAMIN D 1000 UNIT TAB PO SCH (08:55)
[2020-10-03] MEDS: IVERMECTIN 3 MG TABLET PO SCH (08:55)
[2020-10-03] MEDS: ZINC SULFATE 220 MG CAP PO SCH (08:55)
--- NOTE | 2020-10-03 09:42 | RAD REPORT ---
EXAM DESCRIPTION: RAD - Chest Single View - 10/03/2020 6:50 am CLINICAL HISTORY: covid, more hypoxic Chest pain. COMPARISON: Chest Single View dated 09/30/2020 FINDINGS: Portable technique limits examination quality. Mild improvement in lung aeration is seen since comparative examination dated 09/30/2020. The heart i s moderately enlarged in size. No displaced fractures. IMPRESSION: Mild improvement in lung aeration is seen since comparative study.
[2020-10-03] MEDS ORDERED: POTASSIUM CL SA 10 MEQ TAB PO ONE (12:00)
[2020-10-03 14:12] LABS: Blood Morphology Comment NOT SEEN (NOT SEEN); Platelet Estimate ADEQ; White Blood Cell Scan OK (OK)
[2020-10-03] MEDS: RIVAROXABAN 20 MG TABLET PO SCH (16:12)
--- NOTE | 2020-10-03 16:25 | P.PN ---
Subjective Date of Service: 10/03/20 Chief Complaint: COVID-19 pneumonia Subjective: Improving (On NRB sat good/ No change feeling good) Review of Systems Respiratory: Shortness of Breath Physical Examination - Vital Signs Temperature: 97.1 F Blood Pressure: 117/58 Pulse: 65 Respirations: 26 Pulse Ox (%): 92 - Physical Exam General: Alert, In no apparent distress, Oriented x3 Assessment & Plan - Problems (Diagnosis) (1) Pneumonia due to COVID-19 virus Current Visit: Yes Status: Acute Plan: Improvong doing better / Labs chem reviewed
[2020-10-04 06:22] LABS: Absolute Lymphocytes (CBC) 0.5 K/uL (0.7-4.9); Basophils % 0.1 % (0-1.3); Hematocrit 36.9 % (36.0-45.0); Lymphocytes % 5.8 % (15.3-44.8); MPV 8.4 fL (7.6-11.3)
[2020-10-04 06:41] LABS: ALT/SGPT 21 U/L (12-78); AST/SGOT 15 U/L (15-37); Albumin 2.8 g/dL (3.4-5.0); Alkaline Phosphatase 59 U/L (45-117); BUN Blood Urea Nitrogen 26 mg/dL (7-18); Bicarbonate 28 mmol/L (21-32); Bilirubin Total 0.3 mg/dL (0.2-1.0); Ferritin 339.2 ng/mL (8-388); Glucose Level 104 mg/dL (74-106); Magnesium 2.8 mg/dL (1.8-2.4); Potassium 4.1 mmol/L (3.5-5.1); Protein, Total 6.9 g/dL (6.4-8.2); Sodium Level 148 mmol/L (136-145)
[2020-10-04] MEDS: VITAMIN D 1000 UNIT TAB PO SCH (08:05)
[2020-10-04] MEDS: ASCORBIC ACID 500 MG TABLET PO SCH ×4 (08:06→19:12)
[2020-10-04] MEDS: THIAMINE HCL 100 MG TABLET PO SCH (08:06)
[2020-10-04] MEDS: ASPIRIN EC 81 MG TAB PO SCH (08:06)
[2020-10-04] MEDS: ZINC SULFATE 220 MG CAP PO SCH (08:06)
[2020-10-04] MEDS: METHYLPREDNISOLONE 125 MG INJ IV SCH ×2 (08:06→13:16)
--- NOTE | 2020-10-04 09:03 | P.PN ---
Subjective Date of Service: 10/04/20 Chief Complaint: COVID-19 pneumonia Subjective: Improving (feeling better, less short of breath, down to 12L, wants to go home. inflammatory markers improved) Physical Examination - Vital Signs Temperature: 98.4 F Blood Pressure: 141/75 Pulse: 60 Respirations: 32 Pulse Ox (%): 93 Assessment & Plan Physician Review Additional Text: Physical Exam General: Alert, NAD HEENT: normal conjunctiva, sclera anicteric Respiratory: nonlabored on 12L NC Cardiovascular: Regular rate/rhythm, Normal S1 S2 Gastrointestinal: soft, nontender, nondistended Assessment and Plan Acute hypoxic respiratory failure secondary to COVID-19 pneumonia Hypertension -continue treatment per covid protocol - steroids, oral supplements -decrease steroids to 40q8h -wean o2 as needed -pulm consulted -does not qualify for baricitinib, CRP not significantly elevated -lovenox -feels better today, still hypoxic / dyspneic with exertion in room -mild improvement on CXR anticipate dc home in ~2-3 days Time Spent Managing Pts Care (In Minutes): 35
[2020-10-04] MEDS: RIVAROXABAN 20 MG TABLET PO SCH (16:21)
[2020-10-04] MEDS: METHYLPREDNISOLONE 40 MG INJ IV SCH (19:12)
[2020-10-05 06:59] LABS: BUN Blood Urea Nitrogen 30 mg/dL (7-18); Bicarbonate 29 mmol/L (21-32); Glucose Level 114 mg/dL (74-106); Magnesium 2.8 mg/dL (1.8-2.4); Sodium Level 147 mmol/L (136-145)
[2020-10-05] MEDS: VITAMIN D 1000 UNIT TAB PO SCH (07:34)
[2020-10-05] MEDS: THIAMINE HCL 100 MG TABLET PO SCH (07:35)
[2020-10-05] MEDS: ASCORBIC ACID 500 MG TABLET PO SCH ×4 (07:35→20:55)
[2020-10-05] MEDS: METHYLPREDNISOLONE 40 MG INJ IV SCH ×3 (07:35→20:55)
[2020-10-05] MEDS: ASPIRIN EC 81 MG TAB PO SCH (07:35)
[2020-10-05] MEDS: ZINC SULFATE 220 MG CAP PO SCH (07:35)
--- NOTE | 2020-10-05 07:57 | P.PN ---
Subjective Date of Service: 10/05/20 Chief Complaint: COVID-19 pneumonia Subjective: Improving (feeling better, breathing ok, remains on 12L, appetite ok, voiding/stooling) Review of Systems 10-point ROS is otherwise unremarkable Physical Examination - Vital Signs Temperature: 98.3 F Blood Pressure: 136/66 Pulse: 60 Respirations: 20 Pulse Ox (%): 91 Assessment & Plan Physician Review Additional Text: Physical Exam General: Alert, NAD HEENT: normal conjunctiva, sclera anicteric Respiratory: nonlabored on 12L NC Cardiovascular: Regular rate/rhythm, Normal S1 S2 Gastrointestinal: soft, nontender, nondistended Neuro: moves all extremities Assessment and Plan Acute hypoxic respiratory failure secondary to COVID-19 pneumonia Hypertension Hypernatremia, acute -continue treatment per covid protocol - steroids, oral supplements -decreased steroids to 40q8h on 10/04 -wean o2 as needed -pulm consulted -does not qualify for baricitinib, CRP not significantly elevated -lovenox -feels better today, still hypoxic / dyspneic with exertion in room -mild improvement on CXR (10/03) -mild hypernatremia improving anticipate dc home in ~2-3 days Time Spent Managing Pts Care (In Minutes): 35
--- NOTE | 2020-10-05 11:38 | P.PN ---
Subjective Date of Service: 10/05/20 Chief Complaint: COVID-19 pneumonia Subjective: Improving (Doign better) Review of Systems General: Weakness Respiratory: Shortness of Breath Physical Examination - Vital Signs Temperature: 96.9 F Blood Pressure: 151/77 Pulse: 67 Respirations: 32 Pulse Ox (%): 88 - Physical Exam General: Alert, In no apparent distress, Oriented x3, Cooperative Assessment & Plan - Problems (Diagnosis) (1) Pneumonia due to COVID-19 virus Current Visit: Yes Status: Acute Plan: Doing well feeling better. Hypernatremia
[2020-10-05] MEDS: RIVAROXABAN 20 MG TABLET PO SCH (16:04)
[2020-10-06] MEDS: VITAMIN D 1000 UNIT TAB PO SCH (07:42)
[2020-10-06] MEDS: ASPIRIN EC 81 MG TAB PO SCH (07:43)
[2020-10-06] MEDS: ZINC SULFATE 220 MG CAP PO SCH (07:43)
[2020-10-06] MEDS: THIAMINE HCL 100 MG TABLET PO SCH (07:44)
[2020-10-06] MEDS: METHYLPREDNISOLONE 40 MG INJ IV SCH ×3 (07:44→21:24)
[2020-10-06] MEDS: ASCORBIC ACID 500 MG TABLET PO SCH ×4 (07:48→21:24)
[2020-10-06 14:41] LABS: MPV 8.7 fL (7.6-11.3)
[2020-10-06 14:52] LABS: Magnesium 2.8 mg/dL (1.8-2.4); Potassium 3.9 mmol/L (3.5-5.1)
[2020-10-06] MEDS: RIVAROXABAN 20 MG TABLET PO SCH (16:28)
[2020-10-06] MEDS ORDERED: POTASSIUM CL SA 10 MEQ TAB PO ONE (18:08)
--- NOTE | 2020-10-06 18:20 | P.PN ---
Subjective Date of Service: 10/06/20 Chief Complaint: COVID-19 pneumonia Subjective: Improving (ambulating to bedside commode, breathing comfortably on 12L, wants to go home) Review of Systems 10-point ROS is otherwise unremarkable Physical Examination - Vital Signs Temperature: 98.6 F Blood Pressure: 104/57 Pulse: 76 Respirations: 20 Pulse Ox (%): 89 - Studies Microbiology Data (last 24 hrs): 09/30/20 23:05 Blood - Blood Aerobic Blood Culture - Final No growth in 5 days. 09/30/20 23:05 Blood - Blood Anaerobic Blood Culture - Final No growth in 5 days. 09/30/20 22:55 Blood - Blood Aerobic Blood Culture - Final No growth in 5 days. 09/30/20 22:55 Blood - Blood Anaerobic Blood Culture - Final No growth in 5 days. Assessment & Plan Physician Review Additional Text: Physical Exam General: Alert, NAD HEENT: normal conjunctiva, sclera anicteric Respiratory: nonlabored on 12L NC Cardiovascular: Regular rate/rhythm, Normal S1 S2 Gastrointestinal: soft, nontender, nondistended Neuro: moves all extremities Assessment and Plan Acute hypoxic respiratory failure secondary to COVID-19 pneumonia Hypertension Hypernatremia, acute; resolved continue treatment per covid protocol - steroids, oral supplements decreased steroids to 40q8h on 10/04 wean o2 as needed pulm consulted does not qualify for baricitinib, CRP not significantly elevated anticoagulation mild improvement on CXR (10/03) mild hypernatremia resolved anticipate dc home in ~2-3 days Time Spent Managing Pts Care (In Minutes): 35
[2020-10-07 05:26] LABS: Hematocrit 37.1 % (36.0-45.0); MPV 8.3 fL (7.6-11.3); RBC Red Blood Cell Count 4.48 M/uL (3.86-4.86)
[2020-10-07 05:50] LABS: BUN Blood Urea Nitrogen 31 mg/dL (7-18); Bicarbonate 25 mmol/L (21-32); C-Reactive Protein 3.12 mg/L (<3.00); Ferritin 339.1 ng/mL (8-388); Glucose Level 125 mg/dL (74-106); Magnesium 2.6 mg/dL (1.8-2.4); Potassium 4.4 mmol/L (3.5-5.1); Sodium Level 144 mmol/L (136-145)
--- NOTE | 2020-10-07 06:51 | P.PN ---
Subjective Date of Service: 10/07/20 Chief Complaint: COVID-19 pneumonia Subjective: No new changes (doing fine. upset she is still hospitalized. thinks we are "experimenting on her", still on 15L , otherwise eating/ambulating) Review of Systems 10-point ROS is otherwise unremarkable Physical Examination - Vital Signs Temperature: 97.6 F Blood Pressure: 115/72 Pulse: 74 Respirations: 20 Pulse Ox (%): 88 Assessment & Plan Physician Review Additional Text: Physical Exam General: Alert, NAD HEENT: normal conjunctiva, sclera anicteric Respiratory: nonlabored on 15L NC Cardiovascular: Regular rate/rhythm, Normal S1 S2 Gastrointestinal: soft, nontender, nondistended Neuro: moves all extremities Assessment and Plan Acute hypoxic respiratory failure secondary to COVID-19 pneumonia Hypertension Hypernatremia, acute; resolved continue treatment per covid protocol - steroids, oral supplements decreased steroids to 40q8h on 10/04 wean o2 as needed pulm consulted does not qualify for baricitinib, CRP not significantly elevated anticoagulation mild improvement on CXR (10/03) mild hypernatremia resolved anticipate dc home in ~2-3 days Time Spent Managing Pts Care (In Minutes): 35
[2020-10-07] MEDS: ASPIRIN EC 81 MG TAB PO SCH (07:46)
[2020-10-07] MEDS: ASCORBIC ACID 500 MG TABLET PO SCH ×4 (07:46→20:59)
[2020-10-07] MEDS: METHYLPREDNISOLONE 40 MG INJ IV SCH ×3 (07:46→20:59)
[2020-10-07] MEDS: ZINC SULFATE 220 MG CAP PO SCH (07:46)
[2020-10-07] MEDS: THIAMINE HCL 100 MG TABLET PO SCH (07:47)
[2020-10-07] MEDS: VITAMIN D 1000 UNIT TAB PO SCH (07:47)
--- NOTE | 2020-10-07 07:58 | RAD REPORT ---
EXAM DESCRIPTION: Joe Single View10/07/2020 7:09 am CLINICAL HISTORY: Hypoxia COMPARISON: October 03, 2020 FINDINGS: Mild worsening in right and no significant change left pulmonary opacities. Heart remains enlarged IMPRESSION: Mild worsening in right and no significant change in left pulmonary opacities consistent with pneumonia
[2020-10-07] MEDS: RIVAROXABAN 20 MG TABLET PO SCH (16:26)
[2020-10-07] MEDS: BENZONATATE 100 MG CAP PO PRN (20:59)
[2020-10-07] MEDS: MELATONIN 5 MG TABLET PO PRN (20:59)
--- NOTE | 2020-10-07 21:07 | P.PN ---
Subjective Date of Service: 10/07/20 Chief Complaint: COVID-19 pneumonia Subjective: Improving (Feeling better) Review of Systems General: Weakness Respiratory: Shortness of Breath Physical Examination - Vital Signs Temperature: 97.6 F Blood Pressure: 115/72 Pulse: 74 Respirations: 20 Pulse Ox (%): 88 - Physical Exam General: Alert, Oriented x3, Cooperative Assessment & Plan - Problems (Diagnosis) (1) Pneumonia due to COVID-19 virus Current Visit: Yes Status: Acute Plan: Resp failure CW wean down on O2 poss DC 1-2 days
[2020-10-08 07:34] LABS: MPV 8.4 fL (7.6-11.3); RBC Red Blood Cell Count 4.93 M/uL (3.86-4.86)
[2020-10-08 07:50] LABS: Potassium 4.4 mmol/L (3.5-5.1)
[2020-10-08] MEDS: ASPIRIN EC 81 MG TAB PO SCH (08:00)
[2020-10-08] MEDS: VITAMIN D 1000 UNIT TAB PO SCH (08:00)
[2020-10-08] MEDS: THIAMINE HCL 100 MG TABLET PO SCH (08:00)
[2020-10-08] MEDS: ZINC SULFATE 220 MG CAP PO SCH (08:01)
[2020-10-08] MEDS: ASCORBIC ACID 500 MG TABLET PO SCH ×4 (08:01→20:48)
[2020-10-08] MEDS: METHYLPREDNISOLONE 40 MG INJ IV SCH ×3 (08:01→20:48)
--- NOTE | 2020-10-08 15:07 | P.PN ---
Subjective Date of Service: 10/08/20 Chief Complaint: COVID-19 pneumonia Subjective: No new changes Review of Systems General: Unremarkable Eyes: Unremarkable ENT: Unremarkable Respiratory: SOB with Excertion Cardiovascular: Unremarkable Gastrointestinal: Unremarkable Genitourinary: Unremarkable Musculoskeletal: Unremarkable Integumentary: Unremarkable Neurological: Unremarkable Lymphatics: Unremarkable Physical Examination - Vital Signs Temperature: 97.3 F Blood Pressure: 108/73 Pulse: 83 Respirations: 28 Pulse Ox (%): 91 - Physical Exam General: Alert, Oriented x3 HEENT: Atraumatic, PERRLA, EOMI Neck: Supple, JVD not distended Respiratory: Diminished Cardiovascular: Regular rate/rhythm, Normal S1 S2 Capillary refill: <2 Seconds Gastrointestinal: Normal bowel sounds, No tenderness Musculoskeletal: No tenderness Integumentary: No rashes Neurological: Normal speech, Normal tone, Normal affect Lymphatics: No axilla or inguinal lymphadenopathy External genitalia: Deferred Rectal: Deferred Assessment And Plan - Plan Assessment and Plan Acute hypoxic respiratory failure secondary to COVID-19 pneumonia Hypertension Hypernatremia, acute Chest Xray indicates Mild worsening in right and no significant change left pulmonary opacities continue treatment per covid protocol - steroids, oral supplements wean o2 as needed pulmologist on [facility] does not qualify for baricitinib, CRP not significantly elevated anticoagulation mild hypernatremia. Will re-assess in am anticipate dc home in ~2-3 days Discharge Plan: Home Plan to discharge in: 48 Hours - Code Status/Comfort Care Code Status Assessed: Yes Physician Review: Patient Assessed, Agree with Above Assessment and Plan Physician Review Additional Text: Physical Exam General: Alert, NAD HEENT: normal conjunctiva, sclera anicteric Respiratory: nonlabored on 15L NC Cardiovascular: Regular rate/rhythm, Normal S1 S2 Gastrointestinal: soft, nontender, nondistended Neuro: moves all extremities Assessment and Plan Acute hypoxic respiratory failure secondary to COVID-19 pneumonia Hypertension Hypernatremia, acute; resolved continue treatment per covid protocol - steroids, oral supplements decreased steroids to 40q8h on 10/04 wean o2 as needed pulm consulted does not qualify for baricitinib, CRP not significantly elevated anticoagulation mild improvement on CXR (10/03) mild hypernatremia resolved anticipate dc home in ~2-3 days
[2020-10-08] MEDS: RIVAROXABAN 20 MG TABLET PO SCH (16:11)
[2020-10-09 05:44] LABS: Absolute Lymphocytes (CBC) 0.4 K/uL (0.7-4.9); Basophils % 0.2 % (0-1.3); Hematocrit 38.1 % (36.0-45.0); Lymphocytes % 3.5 % (15.3-44.8); MPV 8.5 fL (7.6-11.3)
[2020-10-09 06:01] LABS: BUN Blood Urea Nitrogen 31 mg/dL (7-18); Bicarbonate 26 mmol/L (21-32); Glucose Level 115 mg/dL (74-106); Potassium 4.1 mmol/L (3.5-5.1); Sodium Level 145 mmol/L (136-145)
[2020-10-09] MEDS: ASPIRIN EC 81 MG TAB PO SCH (08:42)
[2020-10-09] MEDS: VITAMIN D 1000 UNIT TAB PO SCH (08:42)
[2020-10-09] MEDS: METHYLPREDNISOLONE 40 MG INJ IV SCH ×3 (08:42→20:45)
[2020-10-09] MEDS: ASCORBIC ACID 500 MG TABLET PO SCH ×4 (08:42→20:46)
[2020-10-09] MEDS: ZINC SULFATE 220 MG CAP PO SCH (08:42)
[2020-10-09] MEDS: THIAMINE HCL 100 MG TABLET PO SCH (08:42)
--- NOTE | 2020-10-09 14:50 | P.PN ---
Subjective Date of Service: 10/09/20 Chief Complaint: COVID-19 pneumonia Nc very hypoxic Review of Systems General: Weakness Respiratory: Shortness of Breath Physical Examination - Vital Signs Temperature: 97.7 F Blood Pressure: 111/61 Pulse: 81 Respirations: 34 Pulse Ox (%): 88 - Physical Exam General: Alert, Oriented x3, Mild distress Assessment & Plan - Problems (Diagnosis) (1) Pneumonia due to COVID-19 virus Current Visit: Yes Status: Acute Plan: Resp failure req high con of O2/ in crease solumedrol Physician Review: Patient Assessed, Agree with Above Assessment and Plan
[2020-10-09] MEDS: RIVAROXABAN 20 MG TABLET PO SCH (16:26)
--- NOTE | 2020-10-09 17:40 | P.PN ---
Subjective Date of Service: 10/09/20 Chief Complaint: COVID-19 pneumonia Patient requiring BiPAP and 100% FiO2. Worse from yesterday. Physical Examination - Vital Signs Temperature: 97.7 F Blood Pressure: 111/61 Pulse: 81 Respirations: 34 Pulse Ox (%): 88 - Physical Exam General: Alert, In no apparent distress HEENT: Other (BiPAP) Respiratory: Other (Nonlabored breathing) Cardiovascular: Regular rate/rhythm, Normal S1 S2 Gastrointestinal: Soft and benign, Non-distended Musculoskeletal: No swelling Integumentary: No rashes Neurological: Normal strength at 5/5 x4 extr Assessment And Plan Physician Review: Patient Assessed, Agree with Above Assessment and Plan Physician Review Additional Text: Assessment and Plan Acute hypoxic respiratory failure secondary to COVID-19 pneumonia Hypertension Hypernatremia, acute; resolved continue treatment per covid protocol - steroids, oral supplements IV steroid titrated up pulm is following Monitor inflammatory markers. Check CRP in a.m. DVT prophylaxis. Patient started on Xarelto.
[2020-10-09] MEDS: MELATONIN 5 MG TABLET PO PRN (20:46)
[2020-10-10 07:14] LABS: Absolute Lymphocytes (CBC) 0.2 K/uL (0.7-4.9); Basophils % 0.1 % (0-1.3); Hematocrit 41.1 % (36.0-45.0); Lymphocytes % 1.9 % (15.3-44.8); MPV 8.7 fL (7.6-11.3); RBC Red Blood Cell Count 4.96 M/uL (3.86-4.86)
--- NOTE | 2020-10-10 07:24 | RAD REPORT ---
EXAM DESCRIPTION: RAD - Chest Single View - 10/10/2020 5:02 am CLINICAL HISTORY: penumonia COMPARISON: Chest Single View dated 10/07/2020; Chest Single View dated 10/03/2020; Chest Single View da juan 09/30/2020; Chest For Pe Angio dated 10/01/2020 FINDINGS: Widespread bilateral airspace disease without significant change compared with 10/07/2020. The heart size is within normal limits.No acute osseous abnormality. Interval development of pneumom ediastinum. There is subcutaneous emphysema within the and neck and left chest alva well. IMPRESSION: Similar widespread bilateral airspace disease consistent with multifocal pneumonia howev er there is new pneumomediastinum and subcutaneous emphysema.
[2020-10-10 07:33] LABS: BUN Blood Urea Nitrogen 43 mg/dL (7-18); Bicarbonate 27 mmol/L (21-32); Ferritin 466.9 ng/mL (8-388); Glucose Level 122 mg/dL (74-106); Potassium 4.1 mmol/L (3.5-5.1); Sodium Level 146 mmol/L (136-145)
[2020-10-10] MEDS: VITAMIN D 1000 UNIT TAB PO SCH (08:55)
[2020-10-10] MEDS: METHYLPREDNISOLONE 40 MG INJ IV SCH ×3 (08:55→22:04)
[2020-10-10] MEDS: THIAMINE HCL 100 MG TABLET PO SCH (08:55)
[2020-10-10] MEDS: ZINC SULFATE 220 MG CAP PO SCH (08:55)
[2020-10-10] MEDS: ASCORBIC ACID 500 MG TABLET PO SCH ×4 (08:55→22:04)
[2020-10-10] MEDS: BENZONATATE 100 MG CAP PO PRN ×2 (08:55→22:04)
[2020-10-10] MEDS: ASPIRIN EC 81 MG TAB PO SCH (08:55)
--- NOTE | 2020-10-10 13:06 | P.PN ---
Subjective Date of Service: 10/10/20 Chief Complaint: COVID-19 pneumonia Subjective: No new changes (states she feels about the same) Review of Systems 10-point ROS is otherwise unremarkable Physical Examination - Vital Signs Temperature: 99.1 F Blood Pressure: 118/66 Pulse: 88 Respirations: 40 Pulse Ox (%): 86 Assessment And Plan Physician Review: Patient Assessed, Agree with Above Assessment and Plan Physician Review Additional Text: General: Alert, In no apparent distress HEENT: Clear conjunctiva, EOMI Respiratory: Increased work of breathing, 82% on non-rebreather Cardiovascular: Regular rate Gastrointestinal: Soft and non-tender Integumentary: No rashes Neurological: Moving all extremities normally Assessment and Plan Acute hypoxic respiratory failure secondary to COVID-19 pneumonia Hypertension Hypernatremia, acute; resolved Continue treatment per covid protocol - steroids, oral vitamin supplements IV steroid titrated up Pulm is following Monitor inflammatory markers. DVT prophylaxis. Patient started on Xarelto. Time Spent Managing PTS Care (In Minutes): 35
[2020-10-10] MEDS: RIVAROXABAN 20 MG TABLET PO SCH (16:37)
[2020-10-10] MEDS: MELATONIN 5 MG TABLET PO PRN (22:04)
[2020-10-11 06:12] LABS: Ferritin 470.5 ng/mL (8-388)
[2020-10-11] MEDS: ASPIRIN EC 81 MG TAB PO SCH (08:06)
[2020-10-11] MEDS: VITAMIN D 1000 UNIT TAB PO SCH (08:06)
[2020-10-11] MEDS: BENZONATATE 100 MG CAP PO PRN ×2 (08:07→21:14)
[2020-10-11] MEDS: METHYLPREDNISOLONE 40 MG INJ IV SCH ×3 (08:07→21:14)
[2020-10-11] MEDS: ZINC SULFATE 220 MG CAP PO SCH (08:07)
[2020-10-11] MEDS: THIAMINE HCL 100 MG TABLET PO SCH (08:07)
[2020-10-11] MEDS: ASCORBIC ACID 500 MG TABLET PO SCH ×4 (08:07→21:14)
--- NOTE | 2020-10-11 13:58 | P.PN ---
Subjective Date of Service: 10/11/20 Chief Complaint: COVID-19 pneumonia Patient seen on 100% non-rebreather mask. Physical Examination - Vital Signs Temperature: 97.8 F Blood Pressure: 106/77 Pulse: 73 Respirations: 32 Pulse Ox (%): 90 - Physical Exam General: In no apparent distress, Oriented x3 Neck: JVD not distended Respiratory: Other (Nonlabored breathing) Cardiovascular: Regular rate/rhythm, Normal S1 S2 Gastrointestinal: Soft and benign, Non-distended Musculoskeletal: No swelling Integumentary: No rashes Neurological: Normal strength at 5/5 x4 extr Assessment And Plan Physician Review: Patient Assessed, Agree with Above Assessment and Plan Physician Review Additional Text: Assessment and Plan Acute hypoxic respiratory failure secondary to COVID-19 pneumonia Hypertension Hypernatremia, acute; resolved Continue treatment per covid protocol - steroids, oral vitamin supplements IV steroid titrated up Pulm is following Monitor inflammatory markers. CRP. Daily evaluation for need for immune modulators. DVT prophylaxis. On Xarelto for DVT prophylaxis.
[2020-10-11] MEDS: RIVAROXABAN 20 MG TABLET PO SCH (16:41)
[2020-10-11] MEDS: MELATONIN 5 MG TABLET PO PRN (21:14)
--- NOTE | 2020-10-11 22:08 | P.PN ---
Subjective Date of Service: 10/11/20 Chief Complaint: COVID-19 pneumonia [place] hypoxic Review of Systems General: Weakness Respiratory: Shortness of Breath Physical Examination - Vital Signs Temperature: 98.1 F Blood Pressure: 117/74 Pulse: 96 Respirations: 30 Pulse Ox (%): 94 Assessment & Plan - Problems (Diagnosis) (1) Pneumonia due to COVID-19 virus Current Visit: Yes Status: Acute Plan: Resp failure/ mild hypernatremia/ on steroids/cxry extensive bilateral changes Physician Review: Patient Assessed, Agree with Above Assessment and Plan
[2020-10-12 05:50] LABS: Absolute Lymphocytes (CBC) 0.3 K/uL (0.7-4.9); Basophils % 0.1 % (0-1.3); Hematocrit 41.4 % (36.0-45.0); MPV 9.2 fL (7.6-11.3); RBC Red Blood Cell Count 4.94 M/uL (3.86-4.86)
[2020-10-12 06:07] LABS: C-Reactive Protein 16.8 mg/L (<3.00); Potassium 4.6 mmol/L (3.5-5.1)
[2020-10-12 08:51] LABS: Anisocytosis 1+; Blood Morphology Comment NOTED (NOT SEEN); Platelet Estimate ADEQ; White Blood Cell Scan OK (OK)
[2020-10-12] MEDS: METHYLPREDNISOLONE 40 MG INJ IV SCH ×3 (09:03→20:28)
[2020-10-12] MEDS: VITAMIN D 1000 UNIT TAB PO SCH (09:03)
[2020-10-12] MEDS: ZINC SULFATE 220 MG CAP PO SCH (09:03)
[2020-10-12] MEDS: ASCORBIC ACID 500 MG TABLET PO SCH ×4 (09:03→20:28)
[2020-10-12] MEDS: ASPIRIN EC 81 MG TAB PO SCH (09:03)
[2020-10-12] MEDS: THIAMINE HCL 100 MG TABLET PO SCH (09:03)
[2020-10-12] MEDS: BENZONATATE 100 MG CAP PO PRN (09:03)
--- NOTE | 2020-10-12 12:53 | P.PN ---
Subjective Date of Service: 10/12/20 Chief Complaint: COVID-19 pneumonia Patient back on BiPAP. No major changes from yesterday. Physical Examination - Vital Signs Temperature: 98 F Blood Pressure: 135/83 Pulse: 77 Respirations: 32 Pulse Ox (%): 91 - Physical Exam General: In no apparent distress HEENT: Other (BiPAP) Neck: JVD not distended Respiratory: Other (Nonlabored breathing) Cardiovascular: Regular rate/rhythm, Normal S1 S2 Gastrointestinal: Soft and benign, Non-distended Musculoskeletal: No swelling Integumentary: No rashes Neurological: Normal strength at 5/5 x4 extr Assessment And Plan Physician Review: Patient Assessed, Agree with Above Assessment and Plan Physician Review Additional Text: Assessment and Plan Acute hypoxic respiratory failure secondary to COVID-19 pneumonia Hypertension Hypernatremia, acute; resolved Continue treatment per covid protocol - steroids, oral vitamin supplements IV steroid titrated up Pulm is following Monitor inflammatory markers. CRP. Daily evaluation for need for immune modulators. DVT prophylaxis. On Xarelto for DVT prophylaxis.
[2020-10-12] MEDS: RIVAROXABAN 20 MG TABLET PO SCH (16:30)
[2020-10-13] MEDS: ASCORBIC ACID 500 MG TABLET PO SCH ×4 (08:34→20:18)
[2020-10-13] MEDS: VITAMIN D 1000 UNIT TAB PO SCH (08:34)
[2020-10-13] MEDS: ZINC SULFATE 220 MG CAP PO SCH (08:34)
[2020-10-13] MEDS: THIAMINE HCL 100 MG TABLET PO SCH (08:34)
[2020-10-13] MEDS: METHYLPREDNISOLONE 40 MG INJ IV SCH ×3 (08:34→20:18)
[2020-10-13] MEDS: ASPIRIN EC 81 MG TAB PO SCH (08:34)
[2020-10-13 08:47] LABS: Absolute Lymphocytes (CBC) 0.1 K/uL (0.7-4.9); Basophils % 0.2 % (0-1.3); Hematocrit 41.5 % (36.0-45.0); Lymphocytes % 1.2 % (15.3-44.8); MPV 9.2 fL (7.6-11.3); RBC Red Blood Cell Count 5.01 M/uL (3.86-4.86)
[2020-10-13 08:58] LABS: BUN Blood Urea Nitrogen 43 mg/dL (7-18); Bicarbonate 28 mmol/L (21-32); Glucose Level 128 mg/dL (74-106); Potassium 4.4 mmol/L (3.5-5.1); Sodium Level 150 mmol/L (136-145)
--- NOTE | 2020-10-13 10:03 | RAD REPORT ---
EXAM DESCRIPTION: RAD - Chest Single View - 10/13/2020 9:53 am CLINICAL HISTORY: pneumomediastinum COMPARISON: Chest Single View dated 10/08/2020; Chest Single View dated 10/07/2020; Chest Single View d ated 10/06/2020; Chest Single View dated 10/05/2020hest Single View dated 10/10/2020; Chest Single View d ated 10/07/2020; Chest Single View dated 10/03/2020; Chest Single View dated 09/30/2020 FINDINGS: Pneumomediastinum noted. There is also a small left apical pneumothorax which is new from prior. Similar widespread bilateral airspace disease. Cardiomegaly.No acute osseous abnormality. No s ignificant pleural effusions or pneumothorax. IMPRESSION: Pneumomediastinum with new small left apical pneumothorax. Similar aeration lungs with w idespread bilateral airspace disease consistent with multifocal pneumonia. Regarding pneumothorax, communication sent to Dr. Weber at 0981 on 10/13/20.
--- NOTE | 2020-10-13 10:19 | P.PN ---
Subjective Date of Service: 10/13/20 Chief Complaint: COVID-19 pneumonia Resp failure/ Not doing well. Tx to ICU Review of Systems General: Weakness Respiratory: Shortness of Breath Physical Examination - Vital Signs Temperature: 97.2 F Blood Pressure: 148/95 Pulse: 87 Respirations: 19 Pulse Ox (%): 95 - Physical Exam General: Alert, Oriented x3, Cooperative, Moderate distress Assessment & Plan - Problems (Diagnosis) (1) Pneumonia due to COVID-19 virus Current Visit: Yes Status: Acute Plan: Resp failure/ Small pneumothorax/ Hypernatriemia/IV fluids Marylu left apex pneumo Physician Review: Patient Assessed, Agree with Above Assessment and Plan
[2020-10-13] MEDS: D5W 1,000 ML IV SCH (11:23)
--- NOTE | 2020-10-13 12:23 | P.PN ---
Subjective Date of Service: 10/13/20 Chief Complaint: COVID-19 pneumonia Patient back on BiPAP. Patient transferred to the IC. Chest x-ray shows mild pneumomediastinum and left apical pneumothorax. Physical Examination - Vital Signs Temperature: 97.2 F Blood Pressure: 148/95 Pulse: 87 Respirations: 19 Pulse Ox (%): 95 - Physical Exam General: Alert, In no apparent distress, Other (Awake) HEENT: Other (BiPAP) Respiratory: Other (Nonlabored breathing) Cardiovascular: Regular rate/rhythm, Normal S1 S2 Gastrointestinal: Soft and benign, Non-distended Musculoskeletal: No swelling Integumentary: No rashes Neurological: Normal strength at 5/5 x4 extr Assessment And Plan Physician Review: Patient Assessed, Agree with Above Assessment and Plan Physician Review Additional Text: Assessment and Plan Acute hypoxic respiratory failure secondary to COVID-19 pneumonia Hypertension Hypernatremia, acute; resolved Pneumomediastinum Continue treatment per covid protocol - steroids, oral vitamin supplements Continue IV steroid Pulm is following Monitor inflammatory markers. Wean BiPAP to high-flow oxygen as soon as possible given pneumomediastinum Daily evaluation for need for immune modulators. DVT prophylaxis. On Xarelto for DVT prophylaxis.
[2020-10-13] MEDS: RIVAROXABAN 20 MG TABLET PO SCH (17:00)
[2020-10-14] MEDS: D5W 1,000 ML IV SCH ×2 (00:23→12:43)
[2020-10-14 05:20] LABS: Absolute Lymphocytes (CBC) 0.2 K/uL (0.7-4.9); Basophils % 0.2 % (0-1.3); Hematocrit 40.4 % (36.0-45.0); MPV 9.2 fL (7.6-11.3)
[2020-10-14 05:37] LABS: BUN Blood Urea Nitrogen 33 mg/dL (7-18); Bicarbonate 28 mmol/L (21-32); Glucose Level 146 mg/dL (74-106); Potassium 4.2 mmol/L (3.5-5.1); Sodium Level 144 mmol/L (136-145)
--- NOTE | 2020-10-14 07:09 | RAD REPORT ---
EXAM DESCRIPTION: RAD - Chest Single View - 10/14/2020 5:36 am CLINICAL HISTORY: pneumothorax COMPARISON: Chest Single View dated 10/13/2020; Chest Single View dated 10/10/2020; Chest Single View dated 10/07/2020; Chest Single View dated 10/03/2020; Chest For Pe Angio dated 10/01/2020 FINDINGS: Left-sided pneumothorax not well appreciated in a decrease in size. Pneumomediastinum is a gain noted. Slight decreased lung volumes. Similar bilateral mild to moderate airspace disease. IMPRESSION: Decrease in size of the left-sided pneumothorax. Similar mild to moderate bilateral airs pace disease consistent with multifocal pneumonia.
[2020-10-14] MEDS: VITAMIN D 1000 UNIT TAB PO SCH (08:43)
[2020-10-14] MEDS: ZINC SULFATE 220 MG CAP PO SCH (08:43)
[2020-10-14] MEDS: THIAMINE HCL 100 MG TABLET PO SCH (08:43)
[2020-10-14] MEDS: ASPIRIN EC 81 MG TAB PO SCH (08:43)
[2020-10-14] MEDS: METHYLPREDNISOLONE 40 MG INJ IV SCH ×3 (08:43→20:21)
[2020-10-14] MEDS: ASCORBIC ACID 500 MG TABLET PO SCH ×4 (08:43→20:21)
[2020-10-14 08:59] LABS: Blood Morphology Comment NOT SEEN (NOT SEEN); Platelet Estimate DECR; White Blood Cell Scan OK (OK)
--- NOTE | 2020-10-14 15:08 | P.PN ---
Subjective Date of Service: 10/14/20 Chief Complaint: COVID-19 pneumonia Patient now tolerating high-flow oxygen Physical Examination - Vital Signs Temperature: 97.4 F Blood Pressure: 135/71 Pulse: 95 Respirations: 33 Pulse Ox (%): 90 - Physical Exam General: Alert, In no apparent distress HEENT: Other (High-flow oxygen) Neck: JVD not distended Respiratory: Other (Nonlabored breathing) Cardiovascular: No edema, Regular rate/rhythm, Normal S1 S2 Gastrointestinal: Soft and benign, Non-distended Musculoskeletal: No swelling Integumentary: No rashes Neurological: Normal strength at 5/5 x4 extr, Cranial nerves 3-12 intact Assessment And Plan Physician Review: Patient Assessed, Agree with Above Assessment and Plan Physician Review Additional Text: Assessment and Plan Acute hypoxic respiratory failure secondary to COVID-19 pneumonia Hypertension Hypernatremia, acute; resolved Pneumomediastinum Continue treatment per covid protocol - steroids, oral vitamin supplements Now on high-flow oxygen Pulm is following Monitor inflammatory markers. Daily evaluation for need for immune modulators. DVT prophylaxis. On Xarelto for DVT prophylaxis.
[2020-10-14] MEDS: RIVAROXABAN 20 MG TABLET PO SCH (17:00)
--- NOTE | 2020-10-14 21:06 | P.PN ---
Subjective Date of Service: 10/14/20 Chief Complaint: COVID-19 pneumonia Nc sig O2 requirement Review of Systems General: Weakness Respiratory: Shortness of Breath Physical Examination - Vital Signs Temperature: 98.9 F Blood Pressure: 117/68 Pulse: 92 Respirations: 29 Pulse Ox (%): 90 - Physical Exam General: Alert, Oriented x3, Cooperative, Mild distress Assessment & Plan - Problems (Diagnosis) (1) Pneumonia due to COVID-19 virus Current Visit: Yes Status: Acute Plan: Resp failure /NC/Dec size l pneumo/ Sodium normal/ Marylu /DC IC IVF/ Water flushes Physician Review: Patient Assessed, Agree with Above Assessment and Plan
--- NOTE | 2020-10-14 21:59 | RAD REPORT ---
EXAM DESCRIPTION: RAD - Abdomen 1 View (KUB) - 10/14/2020 9:15 pm CLINICAL HISTORY: dobhoff placement COMPARISON: No comparisons FINDINGS: Feeding tube has been placed. No abnormal bend or kink of the tubing. Tip is in the mid stomach.
[2020-10-15 05:14] LABS: ALT/SGPT 21 U/L (12-78); AST/SGOT 20 U/L (15-37); Albumin 2.4 g/dL (3.4-5.0); Alkaline Phosphatase 56 U/L (45-117); BUN Blood Urea Nitrogen 32 mg/dL (7-18); Bicarbonate 27 mmol/L (21-32); Bilirubin Total 0.6 mg/dL (0.2-1.0); Ferritin 1050.7 ng/mL (8-388); Glucose Level 133 mg/dL (74-106); Potassium 4.2 mmol/L (3.5-5.1); Protein, Total 6.2 g/dL (6.4-8.2); Sodium Level 140 mmol/L (136-145)
--- NOTE | 2020-10-15 06:04 | P.PN ---
Subjective Date of Service: 10/15/20 Chief Complaint: COVID-19 pneumonia Subjective: No new changes (still requiring high levels of O2 - 40/100% HFNC, appetite ok, some slight hemoptysis today, plt downtrending, inflammatory markers increasing. denies any worsening cough, no abd pain, no dysuria, no rashes) Review of Systems 10-point ROS is otherwise unremarkable Physical Examination - Vital Signs Temperature: 97.2 F Blood Pressure: 122/73 Pulse: 82 Respirations: 29 Pulse Ox (%): 91 Assessment & Plan Physician Review Additional Text: Physical Exam General: Alert, NAD, appears tired HEENT: normal conjunctiva, sclera anicteric Respiratory: nonlabored on HFNC 100% FiO2 Cardiovascular: Regular rate/rhythm, Normal S1 S2 Gastrointestinal: soft, nontender, nondistended Neuro: moves all extremities Assessment and Plan Acute hypoxic respiratory failure secondary to COVID-19 pneumonia Hypertension Hypernatremia, acute; resolved Pneumomediastinum with bilateral pneumothoracices Continue treatment per covid protocol - steroids, oral vitamin supplements Now on high-flow oxygen. avoiding positive pressure ventilation in setting of pneumo's Pulm is following Monitor inflammatory markers. increased - pt otherwise denied rest of ROS, no new symptoms On Xarelto for DVT prophylaxis. pt with some hemoptysis this morning and plt downtrending over last 2 days, will discuss with pulm of possibly lowering dose of xarelto check CBC today CXR unchanged small b/l pneumothorax guarded prognosis Time Spent Managing Pts Care (In Minutes): 35
--- NOTE | 2020-10-15 09:00 | RAD REPORT ---
EXAM DESCRIPTION: RAD - Chest Single View - 10/15/2020 6:24 am CLINICAL HISTORY: pneumothorax Chest pain. COMPARISON: Abdomen 1 View (KUB) dated 10/14/2020; Chest Single View dated 10/14/2020; Chest Single Vi ew dated 10/13/2020; Chest Single View dated 10/10/2020 FINDINGS: Portable technique limits examination quality. Bilateral airspace opacities show little overall change since yesterday's study. Small pneumothoraces are seen to persist bilaterally without evidence of significant enlargement. Heart size is mildly pr ominent. Enteric tube descends into the upper abdomen.
[2020-10-15] MEDS: METHYLPREDNISOLONE 40 MG INJ IV SCH ×3 (09:24→20:29)
[2020-10-15] MEDS: THIAMINE HCL 100 MG TABLET PO SCH (09:25)
[2020-10-15] MEDS: ASCORBIC ACID 500 MG TABLET PO SCH ×4 (09:25→20:30)
[2020-10-15] MEDS: VITAMIN D 1000 UNIT TAB PO SCH (09:25)
[2020-10-15] MEDS: ZINC SULFATE 220 MG CAP PO SCH (09:26)
[2020-10-15] MEDS: ASPIRIN EC 81 MG TAB PO SCH (09:26)
[2020-10-15 11:03] LABS: BUN Blood Urea Nitrogen 36 mg/dL (7-18); Bicarbonate 25 mmol/L (21-32); Glucose Level 141 mg/dL (74-106); Potassium 4.7 mmol/L (3.5-5.1); Sodium Level 141 mmol/L (136-145)
[2020-10-15 12:10] LABS: Absolute Lymphocytes (CBC) 0.1 K/uL (0.7-4.9); Basophils % 0.9 % (0-1.3); Hematocrit 41.3 % (36.0-45.0); Lymphocytes % 1.4 % (15.3-44.8)
[2020-10-15 12:54] LABS: Blood Morphology Comment NOT SEEN (NOT SEEN); Platelet Estimate DECR; White Blood Cell Scan OK (OK)
[2020-10-15 12:55] LABS: Platelets, Giant FEW
--- NOTE | 2020-10-15 13:39 | P.PN ---
Subjective Date of Service: 10/15/20 Chief Complaint: COVID-19 pneumonia Resp failure/Mild hemoptysis Review of Systems General: Weakness Respiratory: Shortness of Breath Physical Examination - Vital Signs Temperature: 98.4 F Blood Pressure: 128/70 Pulse: 79 Respirations: 30 Pulse Ox (%): 90 - Physical Exam General: Alert, In no apparent distress, Oriented x3 Assessment & Plan - Problems (Diagnosis) (1) Pneumonia due to COVID-19 virus Current Visit: Yes Status: Acute Plan: Resp failureLAbs reviewed mild decrease in paletelet count/Sat 's have improved/ wean down on O2 /CXRY improved ? Physician Review: Patient Assessed, Agree with Above Assessment and Plan
[2020-10-15] MEDS: RIVAROXABAN 20 MG TABLET PO SCH (18:18)
[2020-10-15] MEDS: MELATONIN 5 MG TABLET PO PRN (20:30)
[2020-10-16 05:32] LABS: Absolute Lymphocytes (CBC) 0.2 K/uL (0.7-4.9); Basophils % 0.2 % (0-1.3); Lymphocytes % 1.9 % (15.3-44.8); MPV 9.9 fL (7.6-11.3); RBC Red Blood Cell Count 4.79 M/uL (3.86-4.86)
[2020-10-16 05:46] LABS: BUN Blood Urea Nitrogen 45 mg/dL (7-18); Bicarbonate 28 mmol/L (21-32); Ferritin 792.7 ng/mL (8-388); Glucose Level 135 mg/dL (74-106); Potassium 4.4 mmol/L (3.5-5.1); Sodium Level 140 mmol/L (136-145)
--- NOTE | 2020-10-16 06:15 | P.PN ---
Subjective Date of Service: 10/16/20 Chief Complaint: COVID-19 pneumonia Subjective: No new changes (no significant change. pt feels about the same, maybe slightly better. on high levels of O2 supplementation) Review of Systems 10-point ROS is otherwise unremarkable Physical Examination - Vital Signs Temperature: 97.3 F Blood Pressure: 108/83 Pulse: 83 Respirations: 29 Pulse Ox (%): 90 Assessment & Plan Physician Review Additional Text: Physical Exam General: Alert, NAD HEENT: normal conjunctiva, sclera anicteric Respiratory: nonlabored on HFNC 100% FiO2 Cardiovascular: Regular rate/rhythm, Normal S1 S2 Gastrointestinal: soft, nontender, nondistended Neuro: moves all extremities Assessment and Plan Acute hypoxic respiratory failure secondary to COVID-19 pneumonia Hypertension Hypernatremia, acute; resolved Pneumomediastinum with bilateral pneumothoracices Continue treatment per covid protocol - steroids, oral vitamin supplements Now on high-flow oxygen. avoiding positive pressure ventilation in setting of pneumo's CXR unchanged Pulm is following Monitor inflammatory markers. improved today pt with some hemoptysis on 8/17 AM and plt downtrending over last 2-3 days, on xarelto, continue per pulm no further hemoptysis CBC stable guarded prognosis discussed with patient and family - want to continue with full code Time Spent Managing Pts Care (In Minutes): 35
--- NOTE | 2020-10-16 07:20 | RAD REPORT ---
EXAM DESCRIPTION: RAD - Chest Single View - 10/16/2020 6:58 am CLINICAL HISTORY: pneumothorax COMPARISON: Chest Single View dated 10/15/2020; Abdomen 1 View (KUB) dated 10/14/2020; Chest Single Vi ew dated 10/14/2020; Chest Single View dated 10/13/2020 FINDINGS: Similar widespread bilateral airspace disease. No appreciable pneumothorax identified. Pne umomediastinum decreased. Cardiomegaly. Enteric tube below the diaphragm.No acute osseous abnormality . IMPRESSION: Similar aeration lungs with bilateral widespread airspace disease. No pneumothorax ident ified
[2020-10-16] MEDS: ASPIRIN EC 81 MG TAB PO SCH (08:42)
[2020-10-16] MEDS: VITAMIN D 1000 UNIT TAB PO SCH (08:42)
[2020-10-16] MEDS: ZINC SULFATE 220 MG CAP PO SCH (08:43)
[2020-10-16] MEDS: THIAMINE HCL 100 MG TABLET PO SCH (08:43)
[2020-10-16] MEDS: METHYLPREDNISOLONE 40 MG INJ IV SCH ×3 (08:43→20:07)
[2020-10-16] MEDS: ASCORBIC ACID 500 MG TABLET PO SCH ×4 (08:43→20:07)
--- NOTE | 2020-10-16 11:29 | P.PN ---
Subjective Date of Service: 10/16/20 Chief Complaint: COVID-19 pneumonia NC very hypoxic Review of Systems General: Weakness Respiratory: Shortness of Breath Physical Examination - Vital Signs Temperature: 97.3 F Blood Pressure: 108/83 Pulse: 83 Respirations: 29 Pulse Ox (%): 90 - Physical Exam General: Alert, Oriented x3, Cooperative Assessment & Plan - Problems (Diagnosis) (1) Pneumonia due to COVID-19 virus Current Visit: Yes Status: Acute Plan: Resp failur every hypoxic/ CXRY no change/ PT/ prog poor To DW realtives about CODE Physician Review: Patient Assessed, Agree with Above Assessment and Plan
[2020-10-16] MEDS ORDERED: VITAL HP 1,000 ML BOT RTH SCH (12:00)
[2020-10-16] MEDS: RIVAROXABAN 20 MG TABLET PO SCH (17:00)
[2020-10-16] MEDS ORDERED: GLUCAGON 1 MG/VIAL IM PRN (17:34)
[2020-10-16] MEDS ORDERED: D50W 25 GM/50 ML VIAL IV PRN (17:50)
[2020-10-16] MEDS: INSULIN -REGULAR HUMAN 50 UNIT/0.5 ML ML SQ SCH (18:17)
[2020-10-16] MEDS: BENZONATATE 100 MG CAP PO PRN (20:07)
[2020-10-17 05:06] LABS: Hematocrit 38.3 % (36.0-45.0); MPV 9.9 fL (7.6-11.3)
[2020-10-17 05:45] LABS: ALT/SGPT 24 U/L (12-78); AST/SGOT 19 U/L (15-37); Albumin 2.4 g/dL (3.4-5.0); Alkaline Phosphatase 53 U/L (45-117); BUN Blood Urea Nitrogen 38 mg/dL (7-18); Bicarbonate 27 mmol/L (21-32); Bilirubin Total 0.4 mg/dL (0.2-1.0); Ferritin 582.9 ng/mL (8-388); Glucose Level 127 mg/dL (74-106); Potassium 4.7 mmol/L (3.5-5.1); Protein, Total 5.9 g/dL (6.4-8.2); Sodium Level 141 mmol/L (136-145)
[2020-10-17] MEDS: INSULIN -REGULAR HUMAN 50 UNIT/0.5 ML ML SQ SCH ×4 (05:53→16:44)
[2020-10-17] MEDS: ASPIRIN EC 81 MG TAB PO SCH (07:31)
[2020-10-17] MEDS: VITAMIN D 1000 UNIT TAB PO SCH (07:31)
[2020-10-17] MEDS: ZINC SULFATE 220 MG CAP PO SCH (07:31)
[2020-10-17] MEDS: THIAMINE HCL 100 MG TABLET PO SCH (07:31)
[2020-10-17] MEDS: METHYLPREDNISOLONE 40 MG INJ IV SCH (07:32)
[2020-10-17] MEDS: ASCORBIC ACID 500 MG TABLET PO SCH ×4 (07:32→20:27)
--- NOTE | 2020-10-17 10:59 | P.PN ---
Subjective Date of Service: 10/17/20 Chief Complaint: COVID-19 pneumonia NC very hypoxic/ Review of Systems ENT: Nose Discharge Respiratory: Shortness of Breath Physical Examination - Vital Signs Temperature: 97.0 F Blood Pressure: 114/83 Pulse: 76 Respirations: 28 Pulse Ox (%): 87 - Physical Exam General: Alert, Oriented x1, Cooperative, Mild distress HEENT: Atraumatic Assessment & Plan - Problems (Diagnosis) (1) Pneumonia due to COVID-19 virus Current Visit: Yes Status: Acute Plan: Nc Try BIPAP/ Reduce anticoag/ Platelet count decreased/LTAC/Reduce Solumed Physician Review: Patient Assessed, Agree with Above Assessment and Plan
--- NOTE | 2020-10-17 13:30 | P.PN ---
Subjective Date of Service: 10/17/20 Chief Complaint: COVID-19 pneumonia Subjective: No new changes (Still requiring high levels of oxygen, she feels about the same as yesterday. Inflammatory markers improved) Review of Systems 10-point ROS is otherwise unremarkable Physical Examination - Vital Signs Temperature: 97.0 F Blood Pressure: 114/83 Pulse: 76 Respirations: 28 Pulse Ox (%): 87 Assessment & Plan Physician Review Additional Text: Physical Exam General: Alert, NAD HEENT: normal conjunctiva, sclera anicteric Respiratory: nonlabored on HFNC/nonrebreather 100% FiO2 Cardiovascular: Regular rate/rhythm, Normal S1 S2 Gastrointestinal: soft, nontender, nondistended Neuro: moves all extremities Assessment and Plan Acute hypoxic respiratory failure secondary to COVID-19 pneumonia Hypertension Hypernatremia, acute; resolved Pneumomediastinum with bilateral pneumothoracices Continue treatment per covid protocol - steroids, oral vitamin supplements Now on high-flow oxygen. avoiding positive pressure ventilation in setting of pneumo's repeat CXR in AM Pulm is following Monitor inflammatory markers. improved pt with some hemoptysis on 10/15 AM and plt downtrending over last 2-3 days, no further hemoptysis Decrease Xarelto to 10 mg on 10/17 guarded prognosis discussed with patient and family - want to continue with full code no benefits for LTAC Time Spent Managing Pts Care (In Minutes): 35
[2020-10-17] MEDS: RIVAROXABAN 10 MG TABLET PO SCH (16:37)
[2020-10-17] MEDS: METHYLPREDNISOLONE 125 MG INJ IV SCH (20:20)
[2020-10-18] MEDS: INSULIN -REGULAR HUMAN 50 UNIT/0.5 ML ML SQ SCH ×5 (00:24→23:53)
[2020-10-18 05:14] LABS: Hematocrit 39.1 % (36.0-45.0); MPV 9.7 fL (7.6-11.3); RBC Red Blood Cell Count 4.69 M/uL (3.86-4.86)
[2020-10-18 05:30] LABS: BUN Blood Urea Nitrogen 39 mg/dL (7-18); Bicarbonate 27 mmol/L (21-32); Glucose Level 132 mg/dL (74-106); Magnesium 2.4 mg/dL (1.8-2.4); Potassium 4.5 mmol/L (3.5-5.1); Sodium Level 142 mmol/L (136-145)
--- NOTE | 2020-10-18 07:48 | RAD REPORT ---
EXAM DESCRIPTION: RAD - Chest Single View - 10/18/2020 5:55 am CLINICAL HISTORY: f/u pneumo COMPARISON: Portable October 16 TECHNIQUE: AP portable chest image was obtained 10/18/2020 5:55 am . FINDINGS: Lung volumes are low. Interstitial and alveolar opacities are present. There is been sligh t improvement. Cardiomediastinal silhouette is stable. Feeding tube is present extending below the fi eld of view. No measurable pleural effusion and no pneumothorax. No acute bony abnormality seen. No a cute aortic findings suspected. IMPRESSION: Slight improvement in the bilateral widespread interstitial and alveolar disease.
[2020-10-18] MEDS: ZINC SULFATE 220 MG CAP PO SCH (08:58)
[2020-10-18] MEDS: VITAMIN D 1000 UNIT TAB PO SCH (08:58)
[2020-10-18] MEDS: THIAMINE HCL 100 MG TABLET PO SCH (09:00)
[2020-10-18] MEDS: METHYLPREDNISOLONE 125 MG INJ IV SCH ×2 (09:00→20:43)
[2020-10-18] MEDS: ASCORBIC ACID 500 MG TABLET PO SCH ×4 (09:00→20:43)
[2020-10-18] MEDS: ASPIRIN EC 81 MG TAB PO SCH (09:00)
--- NOTE | 2020-10-18 14:18 | P.PN ---
Subjective Date of Service: 10/18/20 Chief Complaint: COVID-19 pneumonia Subjective: No new changes (Patient states she feels a little bit better, down to 95% FiO2, chest x-ray slightly improved. Reports feeling very weak) Review of Systems 10-point ROS is otherwise unremarkable Physical Examination - Vital Signs Temperature: 97.6 F Blood Pressure: 145/81 Pulse: 93 Respirations: 40 Pulse Ox (%): 85 Assessment & Plan Physician Review Additional Text: Physical Exam General: Alert, NAD HEENT: normal conjunctiva, sclera anicteric Respiratory: Mildly labored on HFNC/nonrebreather 95 % FiO2 Cardiovascular: Regular rate/rhythm, Normal S1 S2 Gastrointestinal: soft, nontender, nondistended Neuro: moves all extremities, generalized weakness Assessment and Plan Acute hypoxic respiratory failure secondary to COVID-19 pneumonia Hypertension Hypernatremia, acute; resolved Pneumomediastinum with bilateral pneumothoracices Continue treatment per covid protocol - steroids, oral vitamin supplements Now on high-flow oxygen. avoiding positive pressure ventilation in setting of pneumo's repeat CXR with some improvement of opacities Pulm is following Monitor inflammatory markers. improved pt with some hemoptysis on 10/15 AM and plt downtrending over last 2-3 days, no further hemoptysis Decreased Xarelto to 10 mg on 10/17 guarded prognosis discussed with patient and family on 10/16 - want to continue with full code no benefits for LTAC DaughterTrish - [phone] Time Spent Managing Pts Care (In Minutes): 35
[2020-10-18] MEDS: RIVAROXABAN 10 MG TABLET PO SCH (16:57)
--- NOTE | 2020-10-18 18:13 | RAD REPORT ---
EXAM DESCRIPTION: Joe Single View10/18/2020 5:53 pm CLINICAL HISTORY: Chest pain COMPARISON: October 18, 2020 FINDINGS: No significant change in the bilateral pulmonary opacities. The heart is enlarged. Feedin g tube with its tip in the gastric body IMPRESSION: No significant change in the bilateral pulmonary opacities probably pneumonia
[2020-10-18] MEDS: DOCUSATE NA 100 MG CAP PO SCH (20:43)
[2020-10-19] MEDS: MORPHINE 2 MG/ML SYR IV PRN ×2 (00:19→03:51)
[2020-10-19 05:57] LABS: Potassium 4.6 mmol/L (3.5-5.1); Sodium Level 141 mmol/L (136-145)
[2020-10-19] MEDS: INSULIN -REGULAR HUMAN 50 UNIT/0.5 ML ML SQ SCH ×3 (06:00→16:54)
--- NOTE | 2020-10-19 06:04 | P.PN ---
Subjective Date of Service: 10/19/20 Chief Complaint: COVID-19 pneumonia Subjective: No new changes (Reporting some chest pain last night, troponin mildly elevated, with some chest wall tenderness for like she could not get comfortable yesterday and more tachypneic. Today she reports pain is better but still there. Otherwise no new changes) Review of Systems 10-point ROS is otherwise unremarkable Physical Examination - Vital Signs Temperature: 97.5 F Blood Pressure: 109/82 Pulse: 71 Respirations: 27 Pulse Ox (%): 92 Assessment & Plan Physician Review Additional Text: Physical Exam General: Alert, NAD HEENT: normal conjunctiva, sclera anicteric Respiratory: Mildly labored on HFNC/nonrebreather 100 % FiO2 Cardiovascular: Regular rate/rhythm, Normal S1 S2 Gastrointestinal: soft, nontender, nondistended Neuro: moves all extremities, generalized weakness MSK: Tenderness to palpation along sternum Assessment and Plan Acute hypoxic respiratory failure secondary to COVID-19 pneumonia Hypertension Hypernatremia, acute; resolved Pneumomediastinum with bilateral pneumothoracices Troponin leak secondary to likely demand ischemia Continue treatment per covid protocol - steroids, oral vitamin supplements Now on high-flow oxygen. avoiding positive pressure ventilation in setting of pneumo's Pulm is following Monitor inflammatory markers. improved pt with some hemoptysis on 10/15 AM and plt downtrending no further hemoptysis Decreased Xarelto to 10 mg on 10/17 Cardiology consulted for chest pain with elevated troponin. Trend troponin. Suspect demand ischemia Chest pain reproducible with palpation of sternum guarded prognosis discussed with patient and family on 10/16 and 10/18 - want to continue with full code no benefits for LTAC Daughter, Trish - [phone] Time Spent Managing Pts Care (In Minutes): 40
[2020-10-19 06:05] LABS: ALT/SGPT 30 U/L (12-78); AST/SGOT 23 U/L (15-37); Albumin 2.4 g/dL (3.4-5.0); Alkaline Phosphatase 54 U/L (45-117); BUN Blood Urea Nitrogen 41 mg/dL (7-18); Bicarbonate 25 mmol/L (21-32); Bilirubin Total 0.6 mg/dL (0.2-1.0); C-Reactive Protein 7.67 mg/L (<3.00); Glucose Level 154 mg/dL (74-106); Protein, Total 5.9 g/dL (6.4-8.2)
[2020-10-19 07:29] LABS: Ferritin 548.1 ng/mL (8-388)
[2020-10-19] MEDS: VITAMIN D 1000 UNIT TAB PO SCH (08:03)
[2020-10-19] MEDS: DOCUSATE NA 100 MG CAP PO SCH ×2 (08:03→21:03)
[2020-10-19] MEDS: THIAMINE HCL 100 MG TABLET PO SCH (08:04)
[2020-10-19] MEDS: ASPIRIN EC 81 MG TAB PO SCH (08:04)
[2020-10-19] MEDS: ASCORBIC ACID 500 MG TABLET PO SCH ×4 (08:04→21:03)
[2020-10-19] MEDS: ZINC SULFATE 220 MG CAP PO SCH (08:04)
[2020-10-19] MEDS: RIVAROXABAN 10 MG TABLET PO SCH (16:54)
--- NOTE | 2020-10-19 19:56 | CON ---
Date of Consultation: 10/19/2020 Admitted on 09/30/2020 with COVID pneumonia. Reason For Consultation: Chest pain, elevated troponin. History Of Present Illness: Ms. Ibarra is a 64-year-old woman, who was admitted with COVID pneumon ia. Her only past medical history of hypertension. She has remained on high-flow oxygen 40 L a kortney te, 100% vent setting. She had showed saturation 93%. Complained of chest pain. Troponin 0.09. Gl ucose is 153. Her D-dimer 3717. Chest x-ray showed normal mediastinum and bilateral normal thoraces . Her chest pain is atypical for cardiac disease. Past Medical History: As stated earlier. Allergies: NONE. Review of Systems: Negative. Social History: Negative. Family History: Negative. Medications: At home include losartan. Physical Examination: Vital Signs: Stable, afebrile, O2 saturation 93%. Chest: Revealed crackles throughout. Cardiac: Normal. Abdomen: Benign. Extremities: Revealed no clubbing, cyanosis, or edema. Diagnostic Data: As stated earlier. Impression And Plan: Atypical chest pain. Troponin secondary to demand ischemia. Echocardiogram is pending on Wednesday. She can have an outpatient Lexiscan down the road. Continue her aspirin, insuli n, steroid, Xarelto, and zinc. Continue pulmonary support. Continue to follow her as needed. FCO/LEON Voice ID: [id number] Report ID: [id number]
[2020-10-20 05:06] LABS: Hematocrit 39.8 % (36.0-45.0); MPV 10.2 fL (7.6-11.3)
[2020-10-20 05:25] LABS: BUN Blood Urea Nitrogen 44 mg/dL (7-18); Bicarbonate 27 mmol/L (21-32); Ferritin 660.7 ng/mL (8-388); Glucose Level 122 mg/dL (74-106); Magnesium 2.2 mg/dL (1.8-2.4); Potassium 4.2 mmol/L (3.5-5.1); Sodium Level 141 mmol/L (136-145)
[2020-10-20] MEDS: INSULIN -REGULAR HUMAN 50 UNIT/0.5 ML ML SQ SCH ×4 (06:00→16:59)
--- NOTE | 2020-10-20 06:06 | P.PN ---
Subjective Date of Service: 10/20/20 Chief Complaint: COVID-19 pneumonia Subjective: Worsening (Patient more tachypneic, tachycardic, hypoxic this morning. Placed patient on BiPAP with no significant improvement. Discussed with pulmonology, and updated family. Intubated due to impending respiratory failure) Review of Systems is unable to be obtained Physical Examination - Vital Signs Temperature: 97.3 F Blood Pressure: 133/72 Pulse: 120 Respirations: 39 Pulse Ox (%): 90 Assessment & Plan Physician Review Additional Text: Physical Exam General: Moderate distress prior to intubation HEENT: normal conjunctiva, sclera anicteric Respiratory: Tachypneic and increased work of breathing prior to intubation Cardiovascular: Sinus tachycardia, no edema Gastrointestinal: soft, nontender, minimal distention Neuro: moves all extremities, generalized weakness MSK: Tenderness to palpation along sternum Assessment and Plan Acute hypoxic respiratory failure secondary to COVID-19 pneumonia Hypertension Hypernatremia, acute; resolved R pneumothorax s/p chest tube 10/20 h/o L pneumothorax, resolved ~10/16 Troponin leak secondary to likely demand ischemia Continue treatment per covid protocol - steroids, oral vitamin supplements Patient with significant worsening increased work of breathing, with impending respiratory decompensation Patient intubated 10/20 Developed right pneumothorax ~30%. Dr. Lazo was consulted and placed a chest tube Patient's vitals improved after chest tube placement Decreased Xarelto to 10 mg on 10/17 Cardiology consulted for chest pain with elevated troponin. Trend troponin. S uspect demand ischemia Chest pain reproducible with palpation of sternum Propofol, Nimbex drip Pressors as needed guarded prognosis discussed with patient and family 10/20 after intubation and chest tube placement. Daughter and sister are in agreement with DNR going forward Trish Vigil - [phone] Time Spent Managing Pts Care (In Minutes): 60 (Critical care: 45 minutes)
--- NOTE | 2020-10-20 07:28 | RAD REPORT ---
EXAM DESCRIPTION: RAD - Chest Single View - 10/20/2020 6:43 am CLINICAL HISTORY: Follow-up pneumothorax, pneumonia COMPARISON: October 18, October 16, October 15 TECHNIQUE: AP portable chest image was obtained 10/20/2020 6:43 am . FINDINGS: Tip of the feeding tube is below the diaphragm in the distal stomach. No identifiable pneumothorax and no measurable amount of pneumomediastinum seen. Bilateral lung parenchymal opacification again noted. Bilateral lung parenchymal opacification is not significantly different from the serial studies. Heart and vasculature are normal. No new or enlargi ng pleural effusion. IMPRESSION: No significant change to the bilateral pulmonary opacities from prior imaging. No identifiable pneumothorax or measurable pneumomediastinum.
[2020-10-20] MEDS: MORPHINE 2 MG/ML SYR IV PRN (08:06)
[2020-10-20] MEDS: METHYLPREDNISOLONE 40 MG INJ IV SCH ×2 (08:17→20:32)
[2020-10-20] MEDS: VITAMIN D 1000 UNIT TAB PO SCH (08:18)
[2020-10-20] MEDS: ASCORBIC ACID 500 MG TABLET PO SCH ×4 (08:18→20:33)
[2020-10-20] MEDS: DOCUSATE NA 100 MG CAP PO SCH ×2 (08:18→20:32)
[2020-10-20] MEDS: ZINC SULFATE 220 MG CAP PO SCH (08:18)
[2020-10-20] MEDS: THIAMINE HCL 100 MG TABLET PO SCH (08:18)
[2020-10-20] MEDS: ASPIRIN EC 81 MG TAB PO SCH (08:19)
[2020-10-20] MEDS ORDERED: propofoL 200 MG/20 ML VIAL IV ONE (10:02)
[2020-10-20] MEDS ORDERED: RSI MEDICATION KIT IV ONE (10:02)
[2020-10-20] MEDS ORDERED: FENTANYL CITR 100 MCG/2 ML IV PRN (10:20)
[2020-10-20] MEDS ORDERED: MIDAZOLAM HCL 2 MG/2 ML INJ IV PRN (10:20)
[2020-10-20] MEDS ORDERED: HALOPERIDOL LACT 5 MG/ML INJ IV PRN (10:20)
[2020-10-20] MEDS: LORazepam 2 MG/ML VIAL IV PRN (10:51)
--- NOTE | 2020-10-20 11:00 | RAD REPORT ---
EXAM DESCRIPTION: RAD - Chest Single View - 10/20/2020 10:34 am CLINICAL HISTORY: trachial tube inssertion COMPARISON: October 20 TECHNIQUE: AP portable chest image was obtained 10/20/2020 10:34 am . FINDINGS: Endotracheal tube has been placed. Tip is mid aortic arch level, 4 cm above the eddie, we ll positioned. Feeding tube extends below the diaphragm with the tip off the field of view. A 30% pneumothorax is developed in the right hemithorax. No left-sided pneumothorax identifiable. Pulmonary opacities have not changed. Cardiomediastinal silhouette is stable. No developing pleural e ffusion. Findings telephoned to the ICU 10:54 a.m. IMPRESSION: ET tube in good position mid aortic arch level 4 cm above the eddie. A 30% right-sided pneumothorax has developed.
[2020-10-20] MEDS ORDERED: propofoL 1,000 MG/100 ML VIAL IV ONE (11:05)
[2020-10-20] MEDS ORDERED: NOREPINEPHRINE 4 MG in D5W 250 ML IV PRN (11:13)
[2020-10-20] MEDS ORDERED: LIDOCAINE 1% 20 ML MDV ONE (11:32)
[2020-10-20] MEDS ORDERED: LIDOCAINE 1% MPF 5 ML VIAL ONE (11:32)
[2020-10-20] MEDS ORDERED: NS 0.9% VIAL 0 ML ONE (11:33)
--- NOTE | 2020-10-20 12:18 | RAD REPORT ---
EXAM DESCRIPTION: RAD - Chest Single View - 10/20/2020 12:07 pm CLINICAL HISTORY: Chest tube placement COMPARISON: October 20 TECHNIQUE: AP portable chest image was obtained 10/20/2020 12:07 pm . FINDINGS: Right-sided chest tube has been placed entering approximately sixth inner costal space. Ti p is in the medial right apex. There is no longer any measurable right side pneumothorax. There is no left-sided pneumothorax. ET tube and feeding tube have not changed. Lung parenchymal opacification has not changed. Cardiomedi astinal silhouette is stable. No enlarging pleural effusion. IMPRESSION: Right-sided chest tube in good position. Tip is in the medial right apex. Right-sided pn eumothorax is no longer identifiable. No left-side pneumothorax identifiable. ET tube in good position.
--- NOTE | 2020-10-20 13:09 | PN ---
Date of Progress Note: 10/20/2020 Subjective: Ms. Ibarra was seen because of elevated troponin, chest pain. She has COVID pneumonia . She has bilateral normal thoraces and normal mediastinum, which I think it was causing her chest p ain. She has a troponin of 0.09. Today, she remains in stable condition. She remains on aspirin, s teroid, Xarelto, and zinc. Echocardiogram is pending for Wednesday. If she recovers down the road, we will consider an outpatient Lexiscan. This is not an acute coronary syndrome and no heart catheteriz ation is planned at this point. FCO/LEON Voice ID: [id number] Report ID: [id number]
[2020-10-20] MEDS: propofoL 1,000 MG/100 ML VIAL IV PRN ×3 (13:13→20:50)
[2020-10-20] MEDS: CISATRACURIUM BESYLATE 40 MG in NA CHLORIDE 0.9% 80 ML IV PRN ×2 (13:34→20:49)
--- NOTE | 2020-10-20 14:09 | CON ---
Reason For Consultation: Please note this is a consultation for pneumothorax on the right side after intubation. The patient needed an emergent chest tube. History Of Present Illness: The patient is a 64-year-old female, who was admitted earlier this month on the 30 of September with COVID pneumonia, shortness of breath, and had tested positive on 09/23 and shortness of breath became worse. She came to the emergency room. She was doing okay up until rece ntly and then she did have a chest x-ray on the , which showed small apical pneumothorax on the l eft and the right. Those resolved and were not visible on the chest x-ray. Today, her clinical cond ition worsened and she had to be intubated. Following intubation, the chest x-ray showed 30% right-s ided pneumothorax. I was consulted. Came to evaluate the patient. The patient was sedated, unable to give any review of system. Most of the information is obtained from the electronic medical record s. Review of Systems: Otherwise unremarkable. Past Medical History: Hypertension. Past Surgical History: Hysterectomy. Allergies: NONE. Social History: The patient does not smoke and does not drink alcohol. Family History: Noncontributory. Physical Examination: Vital Signs: Showed a blood pressure of 106/72, respiratory rate 36 prior to intubation, temperature was 99.3. General: She is intubated. Head and Neck: No masses. Chest: Diminished breath sound on the right side. Heart: S1 and S2. Abdomen: Soft, nondistended, nontender. Positive bowel sounds. Extremities: Neurovascularly intact. Neuro: Nonfocal. Diagnostic Studies: Chest x-ray reviewed. The patient has a pneumothorax on the right side. Laboratory Data: Reviewed. Assessment: Right chest pneumothorax. Recommendations: We will put a stat chest tube. Informed consent was obtained from the family. The y understood risks, benefits, and alternatives and agreed to procedure. Procedure Note: The patient was prepped and draped in the usual sterile fashion in the fourth interc ostal space and midaxillary line on the right side and then lidocaine 1% infiltrated locally. Then, an 11 blade was used to make a 2 cm incision. Subcutaneous tissue was divided. The pleural space be tween was entered with sharp and blunt dissection. Air exited. 28-Yakut chest tube placed to 14 cm , secured with #1 Vicryl. Sterile occlusive dressing applied. Chest x-ray ordered, shows complete r esolution of the pneumothorax with good placement of the chest tube. The patient tolerated the proce dure in stable condition. Please note, discussed the chest x-ray findings with Dr. Smith after rev iew all of the chest x-ray and we feel at this time she does not have any evidence of left-sided pneu mothorax even after positive-pressure ventilation, therefore we will not place a chest tube on the ot her side unless clinically indicated later and the patient develops visible pneumothorax. FLORENCIA/WILEYL Voice ID: [id number] Report ID: [id number]
[2020-10-20] MEDS ORDERED: SUCCINYLCHOLINE 20 MG/ML (10 ML) IV ONE (15:38)
[2020-10-20] MEDS: RIVAROXABAN 10 MG TABLET PO SCH (16:59)
--- NOTE | 2020-10-20 20:20 | RAD REPORT ---
EXAM DESCRIPTION: RAD - Chest Single View - 10/20/2020 8:14 pm CLINICAL HISTORY: PICC line placement COMPARISON: October 20 FINDINGS: Portable chest was obtained following placement of a right upper extremity PICC line. The catheter tip is in the mid SVC.
--- NOTE | 2020-10-20 20:30 | P.PN ---
Subjective Date of Service: 10/20/20 Chief Complaint: resp failure R penumothorax Pt intubated developed R sided penumo. Hong has a chest tube Review of Systems is unable to be obtained Physical Examination - Vital Signs Temperature: 99.1 F Blood Pressure: 131/80 Pulse: 119 Respirations: 43 Pulse Ox (%): 97 - Physical Exam General: Unresponsive Assessment & Plan - Problems (Diagnosis) (1) Pneumonia due to COVID-19 virus Current Visit: Yes Status: Acute Plan: Resp failure now on vent now has a R sided chest tube/ VS stable/ labs reviewed/ Thrombocytopenia stable Physician Review: Patient Assessed, Agree with Above Assessment and Plan
[2020-10-21] MEDS: INSULIN -REGULAR HUMAN 50 UNIT/0.5 ML ML SQ SCH ×4 (00:31→18:00)
[2020-10-21] MEDS: propofoL 1,000 MG/100 ML VIAL IV PRN ×5 (01:01→23:54)
[2020-10-21] MEDS: CISATRACURIUM BESYLATE 40 MG in NA CHLORIDE 0.9% 80 ML IV PRN (01:52)
[2020-10-21 05:13] LABS: Absolute Lymphocytes (CBC) 0.1 K/uL (0.7-4.9); Basophils % 0.2 % (0-1.3); Hematocrit 37.8 % (36.0-45.0); Lymphocytes % 0.8 % (15.3-44.8); MPV 10.1 fL (7.6-11.3); RBC Red Blood Cell Count 4.36 M/uL (3.86-4.86)
[2020-10-21 05:32] LABS: Albumin 2.3 g/dL (3.4-5.0); Bilirubin Total 0.5 mg/dL (0.2-1.0); Potassium 5.3 mmol/L (3.5-5.1)
[2020-10-21 05:58] LABS: Basophilic Stippling 1+; Blood Morphology Comment NOTED (NOT SEEN); Platelet Estimate DECR; Polychromasia 1+
--- NOTE | 2020-10-21 07:09 | RAD REPORT ---
EXAM DESCRIPTION: RAD - Chest Single View - 10/21/2020 6:20 am CLINICAL HISTORY: SOB COMPARISON: Chest Single View dated 10/20/2020; Chest Single View dated 10/20/2020; Chest Single View dated 10/20/2020; Chest Single View dated 10/20/2020 FINDINGS: Right-sided chest tube in place without residual pneumothorax identified. Endotracheal tub e terminates at the aortic arch in satisfactory position. Feeding tube below the diaphragm. Pneumomed iastinum is again noted. Bilateral airspace disease is similar. . The heart size is within normal velazquez its.No acute osseous abnormality. Right subclavian approach PICC with tip overlying the SVC noted. IMPRESSION: Bilateral airspace disease is unchanged from 10/20/2020 consistent multifocal pneumonia. Support apparatus including right subclavian approach PICC, chest tube, endotracheal tube, and weigh juan feeding tube are noted and in similar positioning. No appreciable pneumothorax.
[2020-10-21] MEDS: THIAMINE HCL 100 MG TABLET PO SCH (08:26)
[2020-10-21] MEDS: ZINC SULFATE 220 MG CAP PO SCH (08:26)
[2020-10-21] MEDS: METHYLPREDNISOLONE 40 MG INJ IV SCH ×2 (08:26→20:33)
[2020-10-21] MEDS: ASPIRIN EC 81 MG TAB PO SCH (08:26)
[2020-10-21] MEDS: VITAMIN D 1000 UNIT TAB PO SCH (08:26)
[2020-10-21] MEDS: DOCUSATE NA 100 MG CAP PO SCH ×2 (08:26→20:33)
[2020-10-21] MEDS: ASCORBIC ACID 500 MG TABLET PO SCH ×4 (08:26→20:33)
[2020-10-21] MEDS: LORazepam 2 MG/ML VIAL IV PRN ×3 (12:37→18:10)
--- NOTE | 2020-10-21 13:31 | P.PN ---
Subjective Date of Service: 10/21/20 Chief Complaint: resp failure R penumothorax Subjective: No new changes (Intubated yesterday for impending respiratory failure, no acute events overnight other than PICC line placed) Review of Systems 10-point ROS is otherwise unremarkable Physical Examination - Vital Signs Temperature: 98.0 F Blood Pressure: 101/64 Pulse: 100 Respirations: 19 Pulse Ox (%): 94 Assessment & Plan Physician Review Additional Text: Physical Exam General: Intubated/sedated HEENT: normal conjunctiva, sclera anicteric Respiratory: On mechanical ventilation Cardiovascular: Sinus tachycardia, no edema Gastrointestinal: soft, nontender, minimal distention Neuro: moves all extremities, generalized weakness Robles in place Assessment and Plan Acute hypoxic respiratory failure secondary to COVID-19 pneumonia Hypertension Hypernatremia, acute; resolved R pneumothorax s/p chest tube 10/20 h/o L pneumothorax, resolved ~10/16 Troponin leak secondary to likely demand ischemia Continue treatment per covid protocol - steroids, oral vitamin supplements Patient with significant worsening increased work of breathing, with impending respiratory decompensation and required intubation on 10/20 Developed right pneumothorax ~30%. Dr. Lazo was consulted and placed a chest tube on 10/20 Patient's vitals improved after chest tube placement Decreased Xarelto to 10 mg on 10/17, on hold due to worsening thrombocytopenia Cardiology consulted for chest pain with elevated troponin. Suspect demand ischemia. Chest pain reproducible with palpation of sternum Propofol, Nimbex drip Pressors as needed guarded prognosis discussed with patient and family 10/20 after intubation and chest tube placement. Daughter and sister are in agreement with DNR going forward They still want everything done up until her heart stops / loses a pulse. Daughter, Trish - [phone] Time Spent Managing Pts Care (In Minutes): 40
[2020-10-21] MEDS ORDERED: VITAL AF 1,000 ML BOT RTH SCH (14:00)
--- NOTE | 2020-10-21 14:11 | ECHO ---
HEIGHT: 5 ft 1 in WEIGHT: 173 lb 2 oz DATE OF STUDY: 10/21/[address]: Joe Awad MD 2-DIMENSIONAL: YES M.MODE: YES DOPPLER: YES COLOR FLOW: YES TDS: NO PORTABLE: YES DEFINITY: NO BUBBLE STUDY: NO DIAGNOSIS: CHEST PAIN CARDIAC HISTORY: CATHERIZATION: SURGERY: PROSTHETIC VALVE: PACEMAKER: MEASUREMENTS (cm) DIASTOLIC (NORMALS) SYSTOLIC (NORMALS) IVSd 1.2 (0.6-1.2) LA Diam 2.8 (1.9-4.0) LVEF 56% LVIDd 3.9 (3.5-5.7) LVIDs 2.8 (2.0-3.5) %FS 29% LVPWd 1.2 (0.6-1.2) Ao Diam 2.4 (2.0-3.7) 2 DIMENSIONAL ASSESSMENT: RIGHT ATRIUM: LEFT ATRIUM: RIGHT VENTRICLE: LEFT VENTRICLE: TRICUSPID VALVE: MITRAL VALVE: PULMONIC VALVE: AORTIC VALVE: PERICARDIAL EFFUSION: AORTIC ROOT: LEFT VENTRICULAR WALL MOTION: DOPPLER/COLOR FLOW: COMMENTS: VERY LIMITED STUDY, SUBCOSTAL VIEWS. LEFT VENTRICULAR EJECTION FRACTION APPEARS NORMAL BUT CAN NOT EVALUATE WALL MOTION AND EJECTION FRACTION ACCURATELY. TECHNOLOGIST: Pallavi PIKE
[2020-10-21] MEDS: CISATRACURIUM INJECTION 2 MG/ML (10 ML Vial) IV PRN ×2 (16:17→20:23)
[2020-10-21] MEDS: RIVAROXABAN 10 MG TABLET PO SCH (17:09)
[2020-10-21] MEDS ORDERED: HYDROMORPHONE HCL 2 MG/ML inj IV PRN (18:27)
[2020-10-21] MEDS ORDERED: SOD POLYSTYREN SUL 15 GM/60 ML UCUP PO ONE (18:43)
--- NOTE | 2020-10-21 18:46 | P.PN ---
Subjective Date of Service: 10/21/20 Chief Complaint: Resp failure Pt intubated developed R sided penumo. NC agitated Review of Systems is unable to be obtained Physical Examination - Vital Signs Temperature: 99.1 F Blood Pressure: 87/56 Pulse: 125 Respirations: 18 Pulse Ox (%): 90 - Physical Exam General: Comatose Assessment & Plan - Problems (Diagnosis) (1) Pneumonia due to COVID-19 virus Current Visit: Yes Status: Acute Plan: Resp failure/CXRy no penumo/renal function is worse/ KAyexalate/ BP low?CXRy rev/ 70% Fio2/ IVF/ Physician Review: Patient Assessed, Agree with Above Assessment and Plan
[2020-10-21] MEDS: NA CHLORIDE 0.9% 1,000 ML IV SCH (19:05)
[2020-10-21] MEDS: HYDROMORPHONE HCL 2 MG/ML inj IV PRN (21:53)
--- NOTE | 2020-10-21 22:35 | PN ---
Date of Progress Note: 10/21/2020 Ms. Ibarra remains intubated. Her vital signs are stable. Her blood pressure is 100/61, pulse is 94, respiratory rate is 18. She is afebrile. She is in normal rhythm and remains intubated. No rep orts of chest pain. Now, her creatinine is 1.26. Hemoglobin is normal. Her white count is 11.8. H er D-dimer has increased. No troponin available for today. Again, I think she is a patient who had chest pain mostly secondary to pneumothorax bilateral. She has COVID pneumonia. Troponin is not cli nically significant secondary to demand ischemia. Echocardiogram is pending today. FCO/LEON Voice ID: [id number] Report ID: [id number]
[2020-10-21] MEDS ORDERED: Phenylephrine HCl 10 MG/ML 1 ML VIAL ONE (23:41)
[2020-10-21] MEDS ORDERED: NA CHLORIDE 0.9% 250 ML ONE (23:42)
[2020-10-22] MEDS ORDERED: NOREPINEPHRINE 4mg/D5W 250mL 4 MG/250 ML BAG IV ONE (00:23)
[2020-10-22] MEDS: NA CHLORIDE 0.9% 1,000 ML IV SCH ×2 (03:58→14:11)
[2020-10-22] MEDS ORDERED: ALBUMIN HUMAN 25% 50 ML IV ONE (04:00)
[2020-10-22] MEDS: METHYLPREDNISOLONE 40 MG INJ IV SCH ×2 (04:14→20:16)
[2020-10-22 04:51] LABS: Absolute Lymphocytes (CBC) 0.1 K/uL (0.7-4.9); Basophils % 0.2 % (0-1.3); Hematocrit 29.2 % (36.0-45.0); Lymphocytes % 0.9 % (15.3-44.8); MPV 10.1 fL (7.6-11.3); RBC Red Blood Cell Count 3.42 M/uL (3.86-4.86)
[2020-10-22] MEDS ORDERED: FENTANYL CITR 100 MCG/2 ML IV ONE (04:51)
[2020-10-22 05:04] LABS: Albumin 1.8 g/dL (3.4-5.0); Bilirubin Total 0.7 mg/dL (0.2-1.0); C-Reactive Protein 77.9 mg/L (<3.00); Ferritin 934.9 ng/mL (8-388); Protein, Total 4.5 g/dL (6.4-8.2)
[2020-10-22 05:07] LABS: Potassium 5.6 mmol/L (3.5-5.1)
[2020-10-22] MEDS ORDERED: SOD POLYSTYREN SUL 15 GM/60 ML UCUP PO ONE (05:11)
[2020-10-22] MEDS: INSULIN -REGULAR HUMAN 50 UNIT/0.5 ML ML SQ SCH ×4 (06:00→17:19)
[2020-10-22] MEDS ORDERED: Phenylephrine HCl 10 MG/ML 1 ML VIAL ONE ×3 (06:16→06:33)
[2020-10-22] MEDS ORDERED: NA CHLORIDE 0.9% 250 ML ONE (06:34)
[2020-10-22] MEDS: propofoL 1,000 MG/100 ML VIAL IV PRN ×3 (06:45→16:00)
--- NOTE | 2020-10-22 07:55 | RAD REPORT ---
EXAM DESCRIPTION: Joe Single View10/22/2020 6:26 am CLINICAL HISTORY: Shortness of breath COMPARISON: October 21 FINDINGS: No significant change in the diffuse bilateral pulmonary opacities. Heart remains enlarge d. Right chest tube remains in place without visualization of pneumothorax. Subcutaneous emphysema has developed within the right neck. Pneumomediastinum unchanged. Feeding tube within the mid stomach Development of a small left pneumothorax. IMPRESSION: Development of a small left pneumothorax No significant change in the diffuse bilateral pulmonary opacities. Patient's nurse Alivia Notified 7:52 a.m. October 22, 2020
[2020-10-22] MEDS: ASPIRIN EC 81 MG TAB PO SCH (08:36)
[2020-10-22] MEDS: VITAMIN D 1000 UNIT TAB PO SCH (08:37)
[2020-10-22] MEDS: ZINC SULFATE 220 MG CAP PO SCH (08:38)
[2020-10-22] MEDS: DOCUSATE NA 100 MG CAP PO SCH ×2 (08:38→20:15)
[2020-10-22] MEDS: THIAMINE HCL 100 MG TABLET PO SCH (08:38)
[2020-10-22] MEDS: ASCORBIC ACID 500 MG TABLET PO SCH ×4 (08:38→20:16)
[2020-10-22] MEDS ORDERED: ALBUMIN HUM 5% 500 ML IV SCH (10:00)
--- NOTE | 2020-10-22 12:01 | PN ---
Date of Progress Note: 10/22/2020 Ms. Ibarra is here with COVID pneumonia, bilateral pneumothorax. Had chest pain, mildly elevated t roponin. Echocardiogram which was done yesterday was normal without any wall motion abnormalities or effusion. I think her troponin elevation is secondary to demand ischemia. No need to change her me dical therapy at this point. She remained hemodynamically stable. I will sign off her case for now. I will be available for questions if the need arises. FCO/LEON Voice ID: [id number] Report ID: [id number]
--- NOTE | 2020-10-22 15:00 | P.PN ---
Subjective Date of Service: 10/22/20 Chief Complaint: Resp failure Clinical condition is declining. Patient now requiring 2 vasopressors. Status post albumin infusion for severe hypotension this morning. NG tube output is blood tinged. Physical Examination - Vital Signs Temperature: 98.5 F Blood Pressure: 107/60 Pulse: 93 Respirations: 22 Pulse Ox (%): 92 - Physical Exam General: Unresponsive HEENT: Other (ETT, NGT) Respiratory: Other (Bilateral upper airway transmitted sounds) Cardiovascular: Regular rate/rhythm, Edema Gastrointestinal: Soft and benign Integumentary: No rashes Neurological: Other (Unresponsive) Assessment And Plan Physician Review: Patient Assessed, Agree with Above Assessment and Plan Physician Review Additional Text: Assessment and Plan Acute hypoxic respiratory failure secondary to COVID-19 pneumonia Hypertension Hypernatremia, acute; resolved R pneumothorax s/p chest tube 10/20 h/o L pneumothorax, resolved ~10/16 Troponin leak secondary to likely demand ischemia Continue treatment per covid protocol - steroids, oral vitamin supplements Patient gradually declining. He has severely hypotensive and requiring 2 vasopressors. Developed right pneumothorax ~30%. Dr. Lazo was consulted and placed a chest tube on 10/20 Patient's vitals improved after chest tube placement. Discontinue Xarelto given thrombocytopenia and blood tinged NG tube output Poor prognosis. Patient is now DNR. Given the multiple morbid conditions, it will be futile to add another vasopressor for persistent hypotension on 2 max dose vasopressors. Family want to continue aggressive care for now. Daughter, Trish - [phone]
[2020-10-22] MEDS: RIVAROXABAN 10 MG TABLET PO SCH (16:29)
--- NOTE | 2020-10-22 16:50 | P.PN ---
Subjective Date of Service: 10/22/20 Chief Complaint: Resp failure Condition worse patient is on vasopressors hyperkalemia acute renal failure Review of Systems is unable to be obtained Physical Examination - Vital Signs Temperature: 98.5 F Blood Pressure: 117/66 Pulse: 81 Respirations: 26 Pulse Ox (%): 94 - Physical Exam General: Unresponsive Assessment & Plan - Problems (Diagnosis) (1) Pneumonia due to COVID-19 virus Current Visit: Yes Status: Acute Plan: Patient's condition is worse patient has developed severe hyperkalemia acute renal failure and shock prognosis very poor unlikely to survive patient now is mild patient has multiorgan failure with bilateral pneumothorax right greater than the left Physician Review: Patient Assessed, Agree with Above Assessment and Plan
[2020-10-22] MEDS: HYDROMORPHONE HCL 2 MG/ML inj IV PRN (18:33)
[2020-10-23] MEDS: NA CHLORIDE 0.9% 1,000 ML IV SCH ×2 (00:20→10:17)
[2020-10-23] MEDS: HYDROMORPHONE HCL 2 MG/ML inj IV PRN (00:26)
[2020-10-23] MEDS: propofoL 1,000 MG/100 ML VIAL IV PRN ×4 (02:27→15:32)
[2020-10-23] MEDS ORDERED: Phenylephrine HCl 10 MG/ML 1 ML VIAL ONE (02:41)
[2020-10-23] MEDS ORDERED: NA CHLORIDE 0.9% 250 ML ONE ×3 (02:42→14:31)
[2020-10-23 04:55] LABS: Absolute Lymphocytes (CBC) 0.1 K/uL (0.7-4.9); Basophils % 0.2 % (0-1.3); Hematocrit 21.5 % (36.0-45.0); Lymphocytes % 1.5 % (15.3-44.8); MPV 9.7 fL (7.6-11.3); RBC Red Blood Cell Count 2.58 M/uL (3.86-4.86)
[2020-10-23 05:38] LABS: Albumin 2.3 g/dL (3.4-5.0); Bilirubin Total 0.7 mg/dL (0.2-1.0); Ferritin 884.7 ng/mL (8-388); Protein, Total 4.9 g/dL (6.4-8.2)
[2020-10-23 05:40] LABS: Potassium 5.7 mmol/L (3.5-5.1)
[2020-10-23] MEDS: INSULIN -REGULAR HUMAN 50 UNIT/0.5 ML ML SQ SCH ×3 (06:00→12:00)
[2020-10-23 06:51] VITALS: BMI 35.0
--- NOTE | 2020-10-23 07:37 | RAD REPORT ---
EXAM DESCRIPTION: RAD - Chest Single View - 10/23/2020 6:21 am CLINICAL HISTORY: SOB, intubated, chest tube or right-sided pneumothorax COMPARISON: October 22 TECHNIQUE: AP portable chest image was obtained 10/23/2020 6:21 am . FINDINGS: ET tube is mid aortic arch level 2.5 cm above the eddie. Feeding tube tip is in the mid t o distal decompressed stomach. Right-sided PICC line remains in good position. Right-sided chest tube remains stable in position with the tip in the right apex. No measurable pneum othorax seen. An anterior pneumothorax can be occult on a portable examination. Bilateral lung parenchymal opacification has not changed. Prominent cardiac silhouette is stable as w ell. IMPRESSION: Unchanged chest tube position, tip in the right apex. No identifiable pneumothorax. Ante rior pneumothorax can be occult on portable imaging. ET tube in good position with feeding tube tip in the mid to distal stomach. Bilateral interstitial and alveolar opacification not clearly different from prior day study.
[2020-10-23] MEDS: VITAMIN D 1000 UNIT TAB PO SCH (09:00)
[2020-10-23] MEDS: THIAMINE HCL 100 MG TABLET PO SCH (09:00)
[2020-10-23] MEDS: ASPIRIN EC 81 MG TAB PO SCH (09:00)
[2020-10-23] MEDS: ASCORBIC ACID 500 MG TABLET PO SCH ×2 (09:00→12:04)
[2020-10-23] MEDS: DOCUSATE NA 100 MG CAP PO SCH (09:00)
[2020-10-23] MEDS: ZINC SULFATE 220 MG CAP PO SCH (09:00)
[2020-10-23] MEDS: METHYLPREDNISOLONE 40 MG INJ IV SCH (09:06)
[2020-10-23] MEDS ORDERED: SOD POLYSTYREN SUL 15 GM/60 ML UCUP PO ONE (10:29)
[2020-10-23] MEDS ORDERED: CALCIUM GLUC 10% INJ 9.3 MEQ in NA CHLORIDE 0.9% 100 ML IV ONE (10:30)
[2020-10-23] MEDS ORDERED: NA CHLORIDE 0.9% 250 ML IV SCH (11:00)
[2020-10-23] MEDS ORDERED: ATROPINE SULF 1 MG/10 ML SYR IV ONE (11:36)
[2020-10-23 12:44] VITALS: TEMP 97.9
--- NOTE | 2020-10-23 13:42 | P.PN ---
Subjective Date of Service: 10/23/20 Chief Complaint: Resp failure Clinical condition is declining. Patient with bleeding from NGT Edematous. Physical Examination - Vital Signs Temperature: 97.9 F Blood Pressure: 108/58 Pulse: 55 Respirations: 28 Pulse Ox (%): 94 - Physical Exam General: Unresponsive HEENT: Other (NG-tube, ETT.) Neck: JVD not distended Respiratory: Other (Bilateral upper airway transmitted sounds.) Cardiovascular: Regular rate/rhythm, Normal S1 S2, Edema (Bilateral upper and lower extremities and face) Gastrointestinal: Soft and benign, Non-distended Musculoskeletal: No contractures Neurological: Other (Unresponsive) Assessment And Plan Physician Review: Patient Assessed, Agree with Above Assessment and Plan Physician Review Additional Text: Assessment and Plan Acute hypoxic respiratory failure secondary to COVID-19 pneumonia Hypertension Hypernatremia, acute; resolved R pneumothorax s/p chest tube 10/20 h/o L pneumothorax, resolved ~10/16 Troponin leak secondary to likely demand ischemia Continue treatment per covid protocol - steroids, oral vitamin supplements Patient gradually declining. She is requiring vasopressors Developed right pneumothorax ~30%. Chest tube in place. Patient's vitals improved after chest tube placement. Discontinue Xarelto given thrombocytopenia and blood tinged NG tube output. Transfuse 1 unit PRBC and 1 unit platelet. Replete hypocalcemia with IV calcium gluconate. Kayexalate for hyperkalemia. Nephrology consult Poor prognosis. Patient is now DNR. Patient is dying. Recommend comfort measures. Daughter, Trish - [phone]
[2020-10-23 13:51] VITALS: O2SAT 99
--- NOTE | 2020-10-23 14:33 | RAD REPORT ---
EXAM DESCRIPTION: US - Renal Ultrasound-Complete - 10/23/2020 2:12 pm CLINICAL HISTORY: ANNEMARIE Flank pain COMPARISON: No comparisons FINDINGS: Both kidneys are normal in size, shape and echotexture. The right kidney measures 10.8 x 5.8 x 4.9 cm. No hydronephrosis, focal mass or perinephric fluid. The left kidney measures 10.4 x 6.0 x 5.2 cm. No hydronephrosis, focal mass or perinephric fluid. The urinary bladder is incompletely distended without gross abnormality seen. IMPRESSION: Unremarkable renal sonogram.
--- NOTE | 2020-10-23 15:14 | CON ---
Date of Consultation: 10/23/2020 Reason For Consultation: Elevated BUN and creatinine, hyperkalemia, anasarca, fluid management. History Of Present Illness: All the information has been obtained from the record as the patient is intubated, sedated. This is a 64-year-old female with significant past medical history of hypertensi on, came to the hospital with COVID pneumonia, admitted to the hospital back on the 30 of September. T he patient apparently started deteriorating, was on high-flow, developed new pneumomediastinum. The patient then developed septic shock. All along, her kidney function was normal. Then on the , er kidney function started rising. The patient was on 3 pressors, currently on 1 pressor. The patie nt had low blood pressure at that time. In the last 24 hours, also the patient started having hyperk alemia. The patient had GI bleed. Past Medical History: Includes; 1.Hypertension. 2.COVID pneumonia. Past Surgical History: Includes chest tube insertion, hysterectomy, intubation. Family History: Positive for cancer. Social History: Denied smoking. Denied drinking. Denied drugs abuse. Review of Systems: None obtainable. Allergies: NO KNOWN DRUGS ALLERGY. Physical Examination: Vital Signs: When I saw the patient; blood pressure 109/57, pulse of 57, afebrile. The patient had good urine output of 500 in the last 24 hours. Chest: Crackles bilateral. Chest tube insertion. Heart: S1, S2. Systolic murmur. Abdomen: Soft, distended. Extremities: +1 edema. Neuro: The patient is sedated. Laboratory Data: Back on the ; creatinine 0.4, GFR above 90, gradually started trending up. On the 21 of October; creatinine 1.2, GFR 52. Currently sodium 135, potassium 5.7, bicarb 23, BUN 119, creatinine 2.9, GFR of 20, calcium 6.2. Cortisol level is still pending. TSH 0.4. Current Medications: The patient on include; 1.Levophed. 2.IV fluid 100 per hour. 3.Aspirin. 4.Calcium gluconate. 5.Xarelto. 6.Lorazepam. 7.Sedation. 8.Solu-Medrol. 9.Vitamin C. 10.Cholecalciferol. Assessment And Plan: 1.Acute kidney injury secondary to poor perfusion, ATN, toxic ATN/COVID nephropathy, nonoliguric, co mplicated with hyperkalemia and over volume. I am going to discontinue IV fluid given the patient is going to receive a transfusion today. We will give Lasix after the transfusion and we will monitor the patient closely. The patient nonoliguric. Hyperkalemia, marginal. I do not see the need to ini tiate any renal replacement therapy currently and anyhow the patient is not stable hemodynamically to initiate it right now. 2.Hyperkalemia, multifactorial, secondary to renal failure, superimposed with GI bleed. We will rd id any Kayexalate. I agree with calcium gluconate. We will give albuterol and we will diurese the p atient to establish more potassium diuresis and we will follow up lab. 3.Anemia secondary to GI bleed with the presence of thrombocytopenia and acute kidney injury, multio rgan failure/pulmonary renal. I am going to send for serology. I send for LDH and haptoglobin to ru le out any intravascular hemolysis and we will follow up. 4.Multiorgan failure, thrombocytopenia, hypercoagulopathy, GI bleed, renal failure, respiratory fail ure. We will continue supportive care. As I mentioned, we will rule out pulmonary renal syndrome. We will send for serology. We will send for haptoglobin and LDH to rule out any hemolysis and we liam l follow up. 5.Septic shock. Continue current supportive care. 6.Anasarca secondary to renal failure. Discontinue IV fluid. We will start Lasix p.r.n. and we liam l follow up. 7.Hypocalcemia secondary to renal failure. We will send for PTH and vitamin D. We will start the p atient on calcium gluconate. We will follow up. Thank you, Dr. Bangura, for allowing us to participate in the care of your patient. SARAH/LEON Voice ID: [id number] Report ID: [id number]
[2020-10-23] MEDS ORDERED: LORazepam 2 MG/ML VIAL IV PRN (15:42)
[2020-10-23] MEDS ORDERED: MORPHINE 2 MG/ML SYR IV PRN (15:57)
[2020-10-23] MEDS ORDERED: MORPHINE 4 MG/ML SYR IV ONE (16:01)
[2020-10-23 16:19] VITALS: BP 93/67
--- NOTE | 2020-10-23 17:58 | P.DS ---
Admission Date: 09/30/20 Discharge Date: 10/23/20 Disposition: Reason for Admission: Resp failure Brief History of Present Illness: 64-year-old -[place] female with history of hypertension presents emergency department for shortness of breath. Patient tested positive for Covid on 09/23/2020 with worsening shortness of breath since then. Upon arrival to the emergency department patient was saturating the high 80s on room air, patient was placed on nasal cannula. Chest x-ray demonstrated bilateral Covid pneumonia. Patient admitted for further management. Hospital Course: Assessment and Plan Acute hypoxic respiratory failure secondary to COVID-19 pneumonia Hypertension Hypernatremia, acute; resolved R pneumothorax s/p chest tube 10/20 h/o L pneumothorax, resolved ~10/16 Troponin leak secondary to likely demand ischemia Septic shock Acute renal failure Acute metabolic encephalopathy Patient admitted to the medical floor and started on COVID treatment protocol including IV steroid, vitamin supplementation. Inflammatory markers monitored. Patient also treated with Baracitinib. Her clinical condition worsened, patient required BiPAP therapy and subsequently intubated for mechanical ventilation. She developed pneumothorax, multiorgan dysfunction including encephalopathy, renal dysfunction, developed anemia and thrombocytopenia and septic shock. Patient septic shock and was requiring 2 vasopressors. Pneumothorax was managed with the chest tube insertion. Patient did not respond to treatment and clinical condition continued to decline. Prognosis considered very poor. Family made her DNR. She was later put on comfort measures. Comfort measures initiated. Patient an hour later. Time of expiration: 1643. Vital Signs/Physical Exam: Temp Pulse Resp BP Pulse Ox 97.9 F 67 22 H 93/67 98 10/23/20 13:42 10/23/20 16:00 10/23/20 16:00 10/23/20 16:00 10/23/20 16:00 Laboratory Data at Discharge: WBC 5.30 K/uL (4.3-10.9) D 10/23/20 04:40 Hgb 7.0 g/dL (12.0-15.0) L 10/23/20 04:40 Hct 21.5 % (36.0-45.0) L D 10/23/20 04:40 Plt Count 29 K/uL (152-406) L* D 10/23/20 04:40 PT Cancelled 09/30/20 22:55 INR Cancelled 09/30/20 22:55 Sodium 135 mmol/L (136-145) L 10/23/20 04:40 Potassium 5.7 mmol/L (3.5-5.1) H* 10/23/20 04:40 BUN 119 mg/dL (7-18) H 10/23/20 04:40 Creatinine 2.90 mg/dL (0.55-1.3) H 10/23/20 04:40 Glucose 105 mg/dL (74-106) 10/23/20 04:40 Magnesium 2.2 mg/dL (1.8-2.4) 10/20/20 04:28 Total Bilirubin 0.7 mg/dL (0.2-1.0) 10/23/20 04:40 AST 32 U/L (15-37) 10/23/20 04:40 ALT 34 U/L (12-78) 10/23/20 04:40 Alkaline Phosphatase 41 U/L (45-117) L 10/23/20 04:40 Troponin I 0.09 ng/mL (0.0-0.045) H 10/19/20 08:03 Home Medications: Losartan Potassium 1 tab PO DAILY 10/01/20 Followup: Unknown,U [Primary Care Provider] -
[2020-10-23] MEDS ORDERED: CALCIUM GLUC 10% INJ 4.65 MEQ in NA CHLORIDE 0.9% 100 ML IV SCH (21:00)
== END 2020-10-23 19:20 | disposition expired | DRG 208 ==
LOC: ER 19:03 → ERHOLD 23:52 → 4TH 10-01 17:49 → 3RD-ICU 10-13 02:40
PROVIDERS: ADMIT Hospitalist; ATTEND Internal Medicine
PROC: 5A09357 Assistance with Respiratory Ventilation, Less than 24 Consecutive Hours, Continuous Positive Airway Pressure (ICD-10-PCS; 2020-10-14)
PROC: 5A1945Z Respiratory Ventilation, 24-96 Consecutive Hours (ICD-10-PCS; principal; 2020-10-20)
PROC: 0BH17EZ Insertion of Endotracheal Airway into Trachea, Via Natural or Artificial Opening (ICD-10-PCS; 2020-10-20)
PROC: 0W9930Z Drainage of Right Pleural Cavity with Drainage Device, Percutaneous Approach (ICD-10-PCS; 2020-10-20)
PROC: 02HV33Z Insertion of Infusion Device into Superior Vena Cava, Percutaneous Approach (ICD-10-PCS; 2020-10-20)
DX: U07.1 COVID-19 (principal); J95.811 Postprocedural pneumothorax; A41.9 Sepsis, unspecified organism; J12.82 Pneumonia due to coronavirus disease 2019; J96.01 Acute respiratory failure with hypoxia; N17.0 Acute kidney failure with tubular necrosis; R65.21 Severe sepsis with septic shock; G93.41 Metabolic encephalopathy; E87.0 Hyperosmolality and hypernatremia; I24.8 Other forms of acute ischemic heart disease; K92.2 Gastrointestinal hemorrhage, unspecified; I10 Essential (primary) hypertension; J98.2 Interstitial emphysema; R07.89 Other chest pain; Y84.8 Other medical procedures as the cause of abnormal reaction of the patient, or of later complication, without mention of misadventure at the time of the procedure; Y92.239 Unspecified place in hospital as the place of occurrence of the external cause; E87.5 Hyperkalemia; D69.6 Thrombocytopenia, unspecified; E83.51 Hypocalcemia; Z66 Do not resuscitate; D50.0 Iron deficiency anemia secondary to blood loss (chronic); Z78.1 Physical restraint status
CPT/HCPCS: 36415; 36569; 71045; 71275; 74018; 76770; 80048; 80053; 80076; 81003; 81015; 82533; 82728; 82947; 83605; 83735; 83880; 84145; 84439; 84443; 84484; 85025; 85027; 85379; 86140; 86850; 86900; 86901; 87040; 93005; 93306; 94002; 94003; 94660; 94760; 99285; J0330; J0456; J0610; J0696; J1100; J1170; J1650; J2250; J2270; J2370; J2405; J2704; J2920; J2930; J3010; J7030; J7050; J7060; P9016; P9035; P9045; P9047; Q9967